=== PATIENT | female | born 1980 | race Caucasian/White ===

== ENCOUNTER → 2016-08-09 | Outpatient (CLI) | payer BC ==
[~2016-08-09] VITALS: Ht 157.5 cm; Wt 59.9 kg
[~2016-08-09] MED LIST: ADDERALL 20 MG20 M1 PO; APAP500 PO; BENADRYL PO; CELEBREX 200 M200 MG PO; CIPRO250 M1 PO; DERMOPLAST SPRA56 ML TOP; ENDOCET 10-3251 EACH PO; HYDROCODON-ACE1 EAC7 PO; HYDROCODONE-AP1 EAC6 PO; HYDROCORTISONE28 G1 TOP; IBUPROFEN 200200 M1 PO; IBUPROFEN 600600 M1 PO; LANOLIN56 GM TOP; LEVOCETIRIZINE D5 MG PO; LOESTRIN 24 FE1 EACH PO; LORTAB 5 MG/5001 TA1 PO; LYRICA 50 MG50 MG PO; MELATONIN5 M2 PO; MOBIC15 MG PO; NABUMETONE 500500 M1 PO; NABUMETONE 750750 M1 PO; NORCO 5-325 TA1 EACH PO; PRENATAL; PRENATAL COMPL1 EACH PO; PRENATAL PO; SINGULAIR 10 MG10 M1 PO; TUCKS MEDICATE1 EAC1 TOP; VOLTAREN GEL 1100 G2 TOP; ZANTAC PO; ZOFRAN 4 MG ORAL4 M1 DIS
--- NOTE | ~2016-08-09 | HPC ---
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 She was last seen in pain clinic on 06/28/2016. She had trauma to her right foot in February 2015, fracturing the right 4th metatarsal. This was treated conservatively for 8 weeks. Pain has persisted. She has seen 4 different consultants, 2 bundle shaker and 2 orthopedic surgeons, all with varying opinions. Ultimately, they suggested conservative therapy. Unfortunately, she has persisted with pain in this area. I started some Celebrex at last visit. She returns to pain clinic today, pain remains problematic. 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 There is an angular displaced fracture mid shaft with pain that interferes with function. She rates it /10. She has an antalgic gait. I suggest that she follow up with Dr. Ruddy Kraus for consideration for interventional therapy. 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 RECOMMENDATION: We will certainly defer to the treating physicians, but suggest that she follow up with Dr. Ruddy Kraus. Dr. Kraus kindly accepted a phone call from me today. We discussed her case. He said it would be happy to have her come to the clinic Friday morning and they were to work her in [employer]. She does have diagnostic studies with her. PHYSICAL EXAMINATION: Otherwise, shows a 36-year-old female, BMI is 24.1 kilograms per meter squared. Vital signs stable as noted in the EMR. Again, markedly antalgic gait. Tender over the right mid foot both anterior and posterior aspect, pain with weightbearing. There is a slight nodular palpable area which may represent callous formation though the x-rays did not show callous formation at this level. 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 RECOMMENDATION: Today, we will renew low dose pain medicine including [address] [address] PAIN MANAGEMENT CONSULTATION Name: SANDHYA HALL Room #: REG MELIDA Escobar#: [id number] Admission: 08/09/16 Attend Phys: Epifanio Jimenez DO Discharge: Date of : 81 Report #: [id number] hydrocodone 5/325, dispensed #60 tablets, one tablet every 4-6 hours. Continue Celebrex 200 mg 1 a day. <ELECTRONICALLY SIGNED> By: Epifanio Jimenez DO 08/12/16 1130 1046 1305 Epifanio Jimenez DO /nt
[2016-08-09 13:38] VITALS: BP 113/82
== END | disposition home or self-care (01) ==
LOC: PAIN 07:25
DX: M79.671 Pain in right foot (principal)

== ENCOUNTER → 2016-09-13 | Outpatient (CLI) | payer BC ==
[~2016-09-13] VITALS: Ht 157.5 cm; Wt 59.0 kg
[~2016-09-13] MED LIST changes: +NEURONTIN100 MG PO
--- NOTE | ~2016-09-13 | HPC ---
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 She has been treated for coccydynia in the past. This is relatively quiescent at present. She unfortunately had trauma to her right foot and now has chronic pain secondary to a right 4th metatarsal fracture. She has seen multiple podiatrists and orthopedic surgeons, one suggested surgery and several others voiced recommendations that watchful waiting was better. I reviewed the radiologist's reading from the CT of the right foot, noting deformity of the 4th metatarsal shaft consistent with a healed fracture. No CT findings to suggest nonunion were noted. Remainder of the visible osseous structures appear intact. No evidence of bone destruction. The joint relationships are normal. No erosive changes or significant periarticular osteophytes were noted. Impression simply was healed 4th metatarsal fracture. Nonetheless, she does have a palpable knot on the dorsal aspect of the foot over that right 4th metatarsal shaft. This appears to be the fracture site compatible with classic hypertrophic bone "callus" or healing site. I suggested that typically bones will remodel over time and I think that watchful waiting is certainly reasonable here. Nonetheless, it is causing significant pain. Today, we talked at length about current medication. She uses hydrocodone very sparingly 5/325 up to 2 a day, Voltaren gel topically. We reviewed the fact that opiate medications are being used to provide analgesia adequate to support activities of daily living, not attempting to achieve a specific pain score on the 0-10 Visual Analog Scale. The current opiate medications are providing sufficient analgesia to allow the patient to participate in activities of daily living. The patient is not exhibiting any aberrant behavior suggestive of drug diversion. The patient is not having any adverse reactions to medications. The patient is not suffering from daytime somnolence or mental acuity changes. The patient is managing opiate-induced constipation with appropriate icdc-lkn-teqnatz agents and dietary considerations. The patient was counseled on concern for caution with operating a motor vehicle while using opiate medications. A physical exam was performed and the patient's functional status was evaluated. All patients with back pain were advised against the bed rest greater than 4 days and were advised to return to normal activities. Pain score assessment was noted and the treatment plan was reviewed with the patient. All current medications, both prescribed and OTC were reviewed and reconciled on the electronic medical record. Tobacco screening [place] [address] PAIN MANAGEMENT CONSULTATION Name: SANDHYA HALL Room #: REG MELIDA Escobar#: [id number] Admission: 09/13/16 Attend Phys: Epifanio Jimenez DO Discharge: Date of : 81 Report #: [id number] cessation was advised when indicated. BMI was noted and diet/exercise modification was recommended for all patients following outside normal parameters. I reviewed with the patient today their responsibilities to safeguard prescription medications, reviewed their responsibility to utilize medications only as prescribed by the physician. They are to seek and receive pain medications only from 1 physician group ( [facility]). They are to use 1 pharmacy and keep the clinic informed if they change pharmacies. Their responsibilities include making followup visits in a timely fashion and to avoid abrupt discontinuation of medication usage. Their responsibilities further include bringing their medications (bottles from the pharmacy with residual pills) to the visit for possible confirmation of pill counts and the patient understands it is their responsibility to submit to random drug screens to ensure both that the medications prescribed are present, and that no other controlled substances are present. All prescriptions provided today were generated electronically. ASSESSMENT: Symptomatic right foot pain status post fracture with slow healing callus formation causing compression pressure. 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 We suggested trialing gabapentin 100 mg at bedtime, slowly titrating up to 3 at night to help with neuropathic pain component. Follow up in 1-2 months for reevaluation. <ELECTRONICALLY SIGNED> By: Epifanio Jimenez DO 09/16/16 0806 1537 2253 Epifanio Jimenez DO /nt
[2016-09-13 14:15] VITALS: BP 122/84
== END | disposition home or self-care (01) ==
LOC: PAIN 12:05
DX: M79.671 Pain in right foot (principal); S92.341G Displaced fracture of fourth metatarsal bone, right foot, subsequent encounter for fracture with delayed healing; X58.XXXD Exposure to other specified factors, subsequent encounter

== ENCOUNTER → 2016-11-29 | Outpatient (CLI) | payer BC ==
[~2016-11-29] VITALS: Ht 157.5 cm; Wt 59.0 kg
[~2016-11-29] MED LIST changes: +MAGOX 400400 MG PO
[2016-11-29 09:23] VITALS: BP 118/80
== END | disposition home or self-care (01) ==
LOC: PAIN 06:51
DX: M54.16 Radiculopathy, lumbar region (principal); M53.3 Sacrococcygeal disorders, not elsewhere classified; G89.29 Other chronic pain; M25.571 Pain in right ankle and joints of right foot; Z98.890 Other specified postprocedural states

== ENCOUNTER → 2017-03-03 | Outpatient (CLI) | payer BC ==
[~2017-03-03] VITALS: Ht 157.5 cm; Wt 59.9 kg
--- NOTE | ~2017-03-03 | HPC ---
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 Last seen in the pain clinic on 11/29/2016. She had been taking gabapentin 300 mg at bedtime. We titrated slowly up to a dose of 100 mg in the morning and 400 at night. Did an epidural injection of L4-L5 at that time. Suggested an MRI, but fortunately, the patient had excellent relief following that injection. She notes in fact 90% relief for about 8 weeks. Pain is starting to recur. Primarily, paresthesia the posterior thigh (right), lateral lower extremity with paresthesias since in the lateral aspect of the right foot. Near the fracture site (distal fourth metatarsal-tarsal joint), has a burning dysesthesia in the foot. PHYSICAL EXAMINATION: GENERAL: Shows a 37-year-old female. VITAL SIGNS: BMI is 24.1 kilograms per meter squared. Vital signs are stable, as noted in the EMR. NEUROLOGIC: Cranial nerves 2-12 are grossly intact. Speech is fluent. Alert and oriented to person, place and time; judged to be a reasonable historian. EXTREMITIES: She does have a small knot on the superior aspect of the right foot distal aspect of the fourth metatarsal-tarsal joint. She does have a little lateral spread of the foot on that side when she is standing and weightbearing, compared to the left side. Lower extremity strength shows slight diminution of right hip flexion lower extremity strength about 3-4/5, left is a little stronger at 4/5. Positive straight leg raise noted on the right. ASSESSMENT: 1. Symptomatic lumbar radiculopathy, recommendation epidural injection under fluoroscopy today. 2. Right foot pain, history of coccydynia and chronic pain syndrome, requiring high-risk complex medication management. RECOMMENDATIONS: 1. Continue gabapentin 100 mg up to one tablet in the morning and 4 at night, wean as able. 2. Continue Celebrex 200 mg one a day. 3. Continued hydrocodone 5/325, limit 120 tablets typically for 2-3 months. PROCEDURE: Lumbar epidural injection under fluoroscopy. [address] [address] PAIN MANAGEMENT CONSULTATION Name: SANDHYA HALL Duran Room #: REG MELIDA Escobar#: [id number] Admission: 03/03/17 Attend Phys: Epifanio Jimenez DO Discharge: Date of : 81 Report #: [id number] PROCEDURE NOTE: After both written and informed consent to include risk of spinal cord damage, increased pain, weakness and dural puncture, the patient was taken to the fluoroscopy suite, placed in the prone position. After sterile prep and drape, a skin wheal with lidocaine was raised. A 22-gauge epidural Tuohy needle was inserted in the midline at the level of L4-L5 with good loss to resistance. Negative aspiration for cerebrospinal fluid or blood was noted. Then 1 mL of Omnipaque under biplanar fluoroscopy showed good spread within the epidural space. This was followed with 80 mg of triamcinolone plus 1 mL of 1.5% preservative-free Xylocaine, 0.5 mL Xylocaine was then injected to flush the needle; it was removed. The patient was monitored for an appropriate period of time and discharged in good and stable condition. <ELECTRONICALLY SIGNED> By: Epifanio Jimenez DO 03/05/17 0802 1024 1145 Epifanio Jimenez DO /nt
[2017-03-03 08:59] VITALS: BP 114/73
== END | disposition home or self-care (01) ==
LOC: PAIN 06:58
DX: M54.16 Radiculopathy, lumbar region (principal); M25.572 Pain in left ankle and joints of left foot; G89.4 Chronic pain syndrome; M53.3 Sacrococcygeal disorders, not elsewhere classified; Z79.891 Long term (current) use of opiate analgesic; Z98.890 Other specified postprocedural states

== ENCOUNTER → 2017-04-29 | Outpatient (CLI) | payer BC | LOC: MRI 12:45 | DX: M54.16 Radiculopathy, lumbar region (principal) ==

== ENCOUNTER → 2017-08-28 | Outpatient (CLI) | payer BC ==
[~2017-08-28] VITALS: Ht 160 cm; Wt 59.9 kg
[~2017-08-28] MED LIST changes: +RIZATRIPTAN5 M1 PO; +TRANSDERM-SCOP1 EACH TRANSDERM
--- NOTE | ~2017-08-28 | HPC ---
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 She has been treated for coccydynia for quite some time, complaint of lumbar radiculopathy, also has ongoing right foot pain status post poorly healing metatarsal fracture. Last seen in pain clinic 03/03/2017, continued the patient on baseline medication including hydrocodone p.r.n. Last prescription for 120 tablets was generated in November. She discontinued gabapentin due to lack of efficacy. Does take Celebrex 200 mg 1 a day. Returns to pain clinic today with increasing pain in the coccyx area. Pain with sitting, a burning dysesthesia into her buttocks. Chronic pain that waxes and wanes. She is getting ready to travel to [place] to go to [employer] with her children. She knows that riding a ride will significantly exacerbate pain with prolonged sitting, both traveling and riding rides. PHYSICAL EXAMINATION: Otherwise unchanged pleasant 37-year-old female, BMI is 23.4 kilograms per meter squared. Blood pressure is 116/85, pulse 100, respirations 18. Alert and oriented to person, place and time, judged to be a reasonable historian. Does have a little swelling in the right foot, still palpable defect at the fourth metatarsal head. Gait, however, is generally tandem. Diffuse tenderness in the perirectal coccyx area. ASSESSMENT #1: Coccydynia, lumbar radiculopathy, right foot pain status post multiple surgeries, requiring complex medication management. RECOMMENDATIONS: 1. We will renew hydrocodone 5/325, dispense 120 tablets, no refill. 2. She was concerned about vertigo and motion sickness while traveling. I did provide her with a prescription for scopolamine transdermal patch, dispensed 5 patches use q. 3 days. ASSESSMENT #2: Acute exacerbation of coccydynia. RECOMMENDATION: Caudal epidural injection under fluoroscopy. PROCEDURE NOTE: After informed consent was obtained, the patient was taken to the fluoroscopy suite and placed in prone position. After sterile prep and drape, skin wheal was raised. A 22-gauge stylet needle was placed through the sacral hiatus into the caudal epidural space. Negative aspiration was [address] [address] PAIN MANAGEMENT CONSULTATION Name: SANDHYA HALL Room #: [facility] Shawn#: [id number] Admission: 08/28/17 Attend Phys: Epifanio Jimenez DO Discharge: Date of : 81 Report #: [id number] accomplished. Omnipaque 1 mL was injected, which showed spread in the epidural space. This was followed with 80 mg triamcinolone plus 3 mL of 1% preservative-free Xylocaine. Needle was removed, area was cleansed, Band-Aid was applied. The patient monitored for an appropriate period of time, discharged in good and stable condition. <ELECTRONICALLY SIGNED> By: Epifanio Jimenez DO 09/01/17 0822 1209 1921 Epifanio Jimenez DO /nt
[2017-08-28 09:47] VITALS: BP 116/85
== END | disposition home or self-care (01) ==
LOC: PAIN 07:18
DX: M54.16 Radiculopathy, lumbar region (principal); G89.29 Other chronic pain; M53.3 Sacrococcygeal disorders, not elsewhere classified; M25.571 Pain in right ankle and joints of right foot; Z98.890 Other specified postprocedural states; Z79.891 Long term (current) use of opiate analgesic

== ENCOUNTER 2017-11-03 12:09 | Emergency (ER) | payer BC ==
[~2017-11-03] VITALS: Ht 160 cm; Wt 58.1 kg
--- NOTE | ~2017-11-03 | EKG ---
[address] [address] ELECTROCARDIOGRAM REPORT Name: CHIQUITA HALLPERLITA Garzon Room #: DEP [facility]#: [id number] Admission: 11/03/17 Attend Phys: Discharge: 11/03/17 Date of : 81 Report #: [id number] THIS REPORT FOR: //name// [facility] ED Test Date: 2017-11-03 Test Time: 12:34:03 Pat Name: SANDHYA HALL Department: Room: Gender: F Heel Shaper: LEENA : 1980 Requested By: Contreras Delgado Order Number: [id number] MD: Kaleb Henderson Measurements Intervals [place] Rate: 102 P: 56 NJ: 145 QRS: 48 QRSD: 205 T: 20 QT: 355 QTc: 463 Interpretive Statements Sinus tachycardia Nonspecific intraventricular conduction delay No previous ECG available for comparison Electronically Signed On 11-04-2017 14:22:09 CDT by Kaleb Henderson [email or web address] <ELECTRONICALLY SIGNED> By: Kaleb Henderson MD 11/04/17 1422 1234 1234 MD FRANCHESCA Siddiqui
[2017-11-03 12:49] LABS: ABSOLUTE NEUTROPHILS 3.3 thou/uL (1.4-8.2); BASOPHILS 0.6 % (0.0-2.0); EOSINOPHILS 0.5 % (0.0-3.0); HEMATOCRIT 41.4 % (37.0-47.0); HEMOGLOBIN 14.2 gm/dL (12.0-15.0); LYMPHOCYTES 41.2 % (24.0-44.0); MCH 31.5 pg (26.0-34.0); MCHC 34.2 g/dL (28.0-37.0); MCV 92.1 fL (80.0-100.0); PLATELET COUNT 237 thou/uL (150-400); POLYS 50.7 % (36.0-66.0); RDW 12.5 % (10.5-14.5); WBC 6.5 thou/uL (4.0-11.0)
[2017-11-03 12:58] LABS: ANION GAP 14 mmol/L (7-16); BUN 8 mg/dL (7-18); CALCIUM 9.6 mg/dL (8.5-10.1); CHLORIDE 103 mmol/L (98-107); CO2 20 mmol/L (21-32); CREATININE 0.9 mg/dL (0.6-1.0); GLUCOSE 102 mg/dL (74-106); POTASSIUM 3.3 mmol/L (3.5-5.1); SODIUM 137 mmol/L (136-145)
[2017-11-03 13:04] LABS: TROPONIN-I < 0.04 ng/mL (<0.06)
[2017-11-03] MEDS ORDERED: VALIUM5 MG PO (14:04)
== END 2017-11-03 19:23 | disposition home or self-care (01) ==
LOC: ER 12:09
PROVIDERS: Physician Assistant
DX: R00.2 Palpitations (principal); R29.0 Tetany; E87.6 Hypokalemia; R06.02 Shortness of breath; R00.0 Tachycardia, unspecified; R25.2 Cramp and spasm; M79.651 Pain in right thigh; Z90.49 Acquired absence of other specified parts of digestive tract; Z90.89 Acquired absence of other organs

== ENCOUNTER → 2017-11-27 | Outpatient (CLI) | payer BC ==
[~2017-11-27] MED LIST changes: +VALIUM5 MG PO
== END ==
LOC: RAD 07:57
DX: R06.00 Dyspnea, unspecified (principal)

== ENCOUNTER → 2017-11-28 | Outpatient (CLI) | payer BC ==
[~2017-11-28] VITALS: Ht 160 cm; Wt 61.2 kg
--- NOTE | ~2017-11-28 | HPC ---
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 I have treated her for coccydynia and some right foot chronic pain, some neuropathic pain component, requiring complex medication management. She uses hydrocodone 5/325 on a p.r.n. basis anywhere from 0-4 a day. She had a caudal epidural injection at last visit on 08/28/2017 with some improvement of radicular pain. She has been doing physical therapy and has developed some concerning pain in the right gluteal area. Physical therapist thinks it may be related to piriformis entrapment. She has ongoing radicular pain, which can continue to be problematic in right side with fairly classic sciatic type distribution. Concerningly, she has also developed some pain in her bilateral hips. She has a chronically subluxable right shoulder. PHYSICAL EXAMINATION: Does show tenderness over the piriformis in the SI area, tenderness over the right trochanteric bursa. Lower extremity strength is preserved. ASSESSMENT: Symptomatic coccydynia by history, right foot pain chronically requiring complex medication management, neuropathic pain component and new diagnosis of piriformis syndrome. RECOMMENDATION: 1. Piriformis injection under fluoroscopy today. 2. Continue Celebrex 200 mg 1 a day. 3. Renew hydrocodone 5/325, dispensed 120 tablets, 1 tablet q. 4-6 hours as needed for pain, second prescription for 120 tablets to release in 6 weeks. Follow up simply as needed. PROCEDURE: Right pyriformis injection under fluoroscopy. PROCEDURE NOTE: After written informed consent was obtained, the patient was taken to the fluoroscopy suite and placed in prone position. After sterile prep and drape, skin wheal was raised. A 26-gauge stylet needle was placed to contact the inferior aspect of the right SI joint. Depth was noted and needle was withdrawn and repositioned in a more inferior direction, advanced approximately 1 cm deeper. Negative aspiration was accomplished. 1 mL of [facility] [address] [place] [address] PAIN MANAGEMENT CONSULTATION Name: CHIQUITA HALLPERLITA Garzon Room #: [facility] [id number] Admission: 11/28/17 Attend Phys: Epifanio Jimenez DO Discharge: Date of : 82 Report #: [id number] Omnipaque was injected, which showed spread within the striations of the piriformis muscle, followed with 40 mg triamcinolone plus 2 mL of 1.5% preservative-free Xylocaine with 1:200k epinephrine. Needle was removed. The area was cleansed, Band-Aid applied. The patient monitored for an appropriate period of time, discharged in good and stable condition. <ELECTRONICALLY SIGNED> By: Epifanio Jimenez DO 11/30/17 1135 1520 2131 Epifanio Jimenez DO /nt
[2017-11-28 13:43] VITALS: BP 119/82
== END | disposition home or self-care (01) ==
LOC: PAIN 08:41
DX: M79.1 Myalgia (principal); G57.01 Lesion of sciatic nerve, right lower limb; M53.3 Sacrococcygeal disorders, not elsewhere classified; G62.9 Polyneuropathy, unspecified; G89.29 Other chronic pain

== ENCOUNTER → 2018-04-22 | Outpatient (CLI) | payer BC ==
[~2018-04-22] MED LIST changes: +BUTALB-ACETAMI1 EAC2 PO; +HYDROCODON-ACE1 EAC5 PO; +TOPAMAX50 MG PO; +VYVANSE70 MG PO
== END ==
LOC: PAIN 10:57
DX: M79.671 Pain in right foot (principal); M06.9 Rheumatoid arthritis, unspecified; Z72.89 Other problems related to lifestyle

== ENCOUNTER → 2018-05-13 | Outpatient (CLI) | payer BC ==
[~2018-05-13] VITALS: Ht 160 cm; Wt 64.9 kg
[~2018-05-13] MED LIST changes: +GRALISE600 MG PO
--- NOTE | ~2018-05-13 | HPC ---
[facility] [place] [address] PAIN MANAGEMENT CONSULTATION Name: SANDHYA HALL Duran [facility] #[facility] [id number] Admission: 05/13/18 Attend Phys: Talat Jimenez DO Discharge: Date of : 81 Report #: [id number] THIS REPORT FOR: //name// CC: Talat Jimenez DATE OF SERVICE: 05/13/2018 CHIEF COMPLAINT: Right foot pain. HISTORY OF PRESENT ILLNESS: As you know, the patient is a very pleasant 38-year-old female who continues to experience right foot pain status post foot surgery. She describes the pain as aching, constant, sharp, throbbing, shooting, radiating, tenderness, pressure, tightness, burning and numbness in sensation. She indicates pain level today of around 3-4/10. Activity, standing, walking exacerbate symptoms. Medications, rest, ice and cold compresses and topical agents tend to improve pain. She was started on Lyrica via samples for neuropathic pain with good efficacy, but unfortunately can only reach 150 mg at night due to somnolence, decreased mental acuity, disorientation and confusion. She does note good improvement in symptoms with this medication. She returns today in followup visit requesting refill of pain medications and to adjust her neuropathic medication due to the side effects. At 150 mg dose the patient indicates good efficacy from a pain standpoint with about 50% improvement in overall symptoms, but she cannot tolerate the potential side effects by reducing by 50 mg. Her side effects improved, but her pain returns to intolerable. She returns to discuss treatment options. ALLERGIES: No known drug allergies. CURRENT MEDICATIONS: Hydrocodone 10/325 one tab every 6 hours p.r.n. for pain, topiramate 50 mg once a day, Vyvanse 70 mg once a day, Fioricet 1 tab p.r.n., rizatriptan 5 mg p.r.n., levocetirizine 5 mg per day. SOCIAL HISTORY: The patient denies tobacco, alcohol, IV or illicit drug use. She is working, not receiving workmen's compensation, unaccompanied today. IMAGING: No new imaging available. PHYSICAL EXAMINATION: VITAL SIGNS: Blood pressure 135/74, pulse 85, respiratory rate 16 and unlabored, the patient is 99% on room air. Height 5 feet 3 inches tall, weight 143 pounds, BMI calculated 25.3. GENERAL: Well-developed, well-nourished, well-hydrated 38-year-old female, appearing stated age. She is placing pain score today up to 4/10. HEENT: Normocephalic, atraumatic. Pupils are equal, round, reactive to [place] [address] PAIN MANAGEMENT CONSULTATION Name: SANDHYA HALL Room #: REG [facility]#: [id number] Admission: 05/13/18 Attend Phys: Talat Jimenez DO Discharge: Date of : 81 Report #: [id number] EXTREMITIES: Show no clubbing, no cyanosis, no edema. MUSCULOSKELETAL: The patient has well-healed surgical scars on the lateral portion of the anterior foot on the right. There is also well-healed surgical scar, left medial portion of the foot. There are noted changes in skin color, texture over the area. There is palpatory tenderness noted over the fourth digit second articulation that causes intense pain. Deep palpation in the area causes a burning sensation to radiate towards the incision on the right anterior medial portion of the foot. There does appear to be changes in skin color and texture on the plantar surface of the foot and there is some mottling noted of the skin from approximately the ankle towards the forefoot. ASSESSMENT: 1. Right foot pain status post surgery. 2. Peripheral neuropathy. 3. Concerning findings of complex regional pain syndrome type 1. PLAN: 1. The patient has returned today in followup visit where we have discussed at length the efficacy. She receives off the Lyrica, unfortunately she cannot tolerate escalating the dose beyond 100 mg during the day due to somnolence, decreased mental acuity, disorientation, confusion and mental slowing. We had tried the patient on gabapentin in the past, but was unable to escalate her dosing due to similar side effects. She did receive excellent benefit with both medications at elevated dosing, but again could not tolerate the side effects due to the immediate release formulations of Lyrica and gabapentin in their effect 20 minutes after taking the medication. We had discussed in the past, possibly of starting the patient on Gralise. I think this would be the optimal time to do so. 2. The patient was provided prescription of Gralise 600 mg dose 1 tab p.o. at bedtime to continue for 4 nights. If no improvement in symptoms, no side effects, then increase to 1200 mg at night. I have provided the patient with a prescription of Gralise 600 mg tablets to escalate dose to efficacious level. She is to watch for side effects with its use. Given the fact that she has had good effect with the immediate release gabapentin and good effect with the immediate release Lyrica, but could not tolerate the side effects of the medications due to their propensity to cause immediate side effects 20-30 minutes after the medication, I feel a long-acting formulation therapy would be appropriate. We will trial the patient on Gralise. She was given prescription today. 3. The patient was provided prescription of hydrocodone one tab p.o. q.6 hours p.r.n. for pain. The patient feels this medication is working beneficially. I have provided her a refill prescription today for 1 month. 4. We reviewed the fact that opiate medications are being used to provide analgesia adequate to support activities of daily living, not attempting to achieve a specific pain score on the 0-10 Visual Analog Scale. The current opiate medications are providing sufficient analgesia to allow the patient to [address] [address] PAIN MANAGEMENT CONSULTATION Name: SANDHYA HALL Duran Room #: [facility]#: [id number] Admission: 05/13/18 Attend Phys: Talat Jimenez DO Discharge: Date of : 81 Report #: [id number] participate in activities of daily living. The patient is not exhibiting any aberrant behavior suggestive of drug diversion. The patient is not having any adverse reactions to medications. The patient is not suffering from daytime somnolence or mental acuity changes. The patient is managing opiate-induced constipation with appropriate [id number] agents and dietary considerations. The patient was counseled on concern for caution with operating a motor vehicle while using opiate medications. A physical exam was performed and the patient's functional status was evaluated. All patients with back pain were advised against the bed rest greater than 4 days and were advised to return to normal activities. Pain score assessment was noted and the treatment plan was reviewed with the patient. All current medications, both prescribed and OTC were reviewed and reconciled on the electronic medical record. Tobacco screening was accomplished and smoking cessation was advised when indicated. BMI was noted and diet/exercise modification was recommended for all patients following outside normal parameters. I reviewed with the patient today their responsibilities to safeguard prescription medications, reviewed their responsibility to utilize medications only as prescribed by the physician. They are to seek and receive pain medications only from 1 physician group ( [facility]). They are to use 1 pharmacy and keep the clinic informed if they change pharmacies. Their responsibilities include making followup visits in a timely fashion and to avoid abrupt discontinuation of medication usage. Their responsibilities further include bringing their medications (bottles from the pharmacy with residual pills) to the visit for possible confirmation of pill counts and the patient understands it is their responsibility to submit to random drug screens to ensure both that the medications prescribed are present, and that no other controlled substances are present. All prescriptions provided today were generated electronically. 5. The patient is to follow up with her dust mixer this week. We will await their discussion and suggestions for treatment. Certainly continuation of neuropathic medication and consistent opioid at present is most appropriate, though further treatment options may be suggested through her dust mixer who she will be seeing this week. 6. We will see the patient back in followup visit on an as needed basis. By: [id number] Talat Jimenez DO /nt
[2018-05-13 11:30] VITALS: BP 135/74
== END ==
LOC: PAIN 10:47
DX: Z48.89 Encounter for other specified surgical aftercare (principal); M79.671 Pain in right foot; G62.9 Polyneuropathy, unspecified; G90.50 Complex regional pain syndrome I, unspecified

== ENCOUNTER → 2018-05-26 | Outpatient (CLI) | payer BC ==
[~2018-05-26] VITALS: Ht 160 cm; Wt 62.6 kg
--- NOTE | ~2018-05-26 | HPC ---
[facility] [address] [address] PAIN MANAGEMENT CONSULTATION Name: SANDHYA HALL Room #: REG [facility] FlemingoJse LuisJavierJose Luis#: [id number] Admission: 05/26/18 Attend Phys: Talat Jimenez DO Discharge: Date of : 81 Report #: [id number] THIS REPORT FOR: //name// CC: Talat Shah DATE OF SERVICE: 05/26/2018 REFERRING PHYSICIAN: Talat Wade D.O. CHIEF COMPLAINT: Complex regional pain syndrome of the right lower extremity. HISTORY OF PRESENT ILLNESS: As you know, the patient is a very pleasant 38-year-old female who began to experience generalized neuropathic pain after a foot surgery performed to address right foot pathology. The patient indicates pain began to progress. It is no longer involving the incision areas. It is now causing more generalized pain in a distribution, nondermatomal. She carries the diagnosis of complex regional pain syndrome type 1 and we have initiated medication therapy both with opioid medications and neuropathic pain medications. She has begun physical therapy after being released from care from her foot surgeon, which has increased her overall pain. She is describing allodynic and hyperalgesic components of her pain involving the right foot. Symptoms are unrelated to the area of the incisions themselves. She has a significant temperature changes when comparing left lower extremity to right and there is noted mottling of the skin indicative of a complex regional pain syndrome. She returns today in followup visit with pain level of 6-7/10, increases with activity up to /10. She returns to discuss treatment options. ALLERGIES: No known drug allergies. CURRENT MEDICATIONS: Lyrica 150 mg p.o. at bedtime, hydrocodone/acetaminophen 10/325 one tab p.o. q. 4 hours p.r.n. for pain, topiramate 50 mg 2 tabs p.o. q.a.m., Vyvanse 70 mg per day, Fioricet 1 tab every 8 hours p.r.n. headaches, rizatriptan 5 mg dose and rapid Zydis p.r.n. SOCIAL HISTORY: The patient denies tobacco, alcohol or IV or illicit drug use. She is working, not receiving workmen's compensation nor is she trying to obtain disability benefits. She is unaccompanied today. IMAGING DATA: There is no new imaging available. PHYSICAL EXAMINATION: VITAL SIGNS: Blood pressure 119/76, pulse 85, respiratory rate 16 and unlabored and the patient 99% on room air. Height 5 feet 3 inches tall, weight 138 pounds and BMI calculated 24.5[place] [address] PAIN MANAGEMENT CONSULTATION Name: SANDHYA HALL Room #: [facility] [id number] Admission: 05/26/18 Attend Phys: Talat Jimenez DO Discharge: Date of : 81 Report #: [id number] GENERAL: Well-developed, well-nourished and well-hydrated 38-year-old female, appearing her stated age. She is in mild distress secondary to pain, placing current pain score at 6-10/10 depending on activity. HEENT: Normocephalic and atraumatic. Pupils equal, round and reactive to light. Extraocular muscles are intact. Sclerae nonicteric without injection. NEUROLOGICAL: Cranial nerves 2 through 12 grossly intact. Speech is fluent. The patient deemed an excellent historian. EXTREMITIES: Show no clubbing and no cyanosis. There is noted mottling, skin color changes with hues of blues and purples involving the right lower extremity from approximately the ankle to the toes involving both the plantar surface and the dorsum of the foot. Noted temperature change between the dorsum of the foot on the right dorsum foot on the left, right measuring at 72.9 degrees Fahrenheit and left 81.2 degrees Fahrenheit. There is noted allodynia involving a nondermatomal distribution involving the lateral portion of the right foot as well as medial aspect of the foot from the articulation of the great toe to the medial arch. There is also noted palpatory tenderness over the incision sites more of hyperalgesic response. ASSESSMENT: 1. Complex regional pain syndrome type 1. 2. Peripheral neuropathy. 3. Chronic right foot pain. 4. Chronic intractable pain. PLAN: 1. The patient has returned today in followup visit. We have discussed at length treatment options for complex regional pain syndrome. The patient has been initiated on neuropathic pain medication in the form of Lyrica and she has escalated dose to 150 mg at night but is having difficulty with daytime sleepiness, somnolence, disorientation, confusion and some mental slowing. She is reporting difficulty with concentration and has not been driving due to this side effect, but she is noticing an improvement in symptoms. She is taking hydrocodone for pain control and receiving some benefit. Her symptoms continued to cause increasing disability. We have discussed with the patient other treatment option for complex regional pain syndrome outside of medication management and following was discussed with the patient today. 2. We discussed the possibility of undergoing lumbar sympathetic blockades involving the right sympathetic chain in the lumbar region. These are performed in a series trying to reduce the sympathetic component that may be mediating pain. It does appear based on her changes in skin color and blood flow as well as the temperature changes that her symptoms are likely mediated by sympathetic discharge and she may see significant benefit with this type of procedure. We also discussed further adjustments in medication management but given her side effects to the Lyrica, escalating this dose may not be recommended. We finally discussed spinal cord stimulator therapy as an option, which could provide good and prolonged benefit. After reviewing risks and benefits of all proposed [facility] [address] [place] [address] PAIN MANAGEMENT CONSULTATION Name: SANDHYA HALL Duran Room #: REG [facility] Escobar#: [id number] Admission: 05/26/18 Attend Phys: Talat Jimenez DO Discharge: Date of : 81 Report #: [id number] treatment options, the patient chose to move forward with a lumbar sympathetic blockade. The patient was advised risks and benefits of the lumbar sympathetic blockade. These risks include but are not necessarily limited to bleeding, bruising, infection, worsening pain, no relief of pain, also risk of temporary or permanent muscle weakness, temporary or permanent nerve damage, possible paralysis, post-dural puncture headache and . The patient states understood and wished to proceed. 3. We elected to maintain medication at current dosing, though we did discuss the possibility of increasing Lyrica in the daytime hours, though I am resistant to do so as she is experiencing daytime somnolence, disorientation, confusion and some mental slowing. 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 I am in agreement with the patient at this time, we will delay any changes in medication therapy to determine if the lumbar sympathetic blockade will be effective at alleviating her symptoms. If this is not the case, we will discuss spinal cord stimulator or adjustments in medication management. 4. The patient will return to our clinic on May 29 to undergo the next in the series of lumbar sympathetic blockades. PROCEDURE NOTE DESCRIPTION OF PROCEDURE: Right L3 lumbar sympathetic blockade. After obtaining written consent, the patient was taken back to fluoroscopy suite, placed in prone position with pillow under abdomen to decrease lumbar lordosis. Skin overlying the lumbosacral area then prepped and draped in aseptic fashion. The image intensifier was then rotated into position to align the right L3 transverse process with the anterior surface of the L3 vertebral body. The skin was marked with a sterile marker and cleansed with aseptic technique using chlorhexidine. A 27-gauge 1/4-inch needle was then used to anesthetize skin and subcutaneous tissue with 2 mL of 1% lidocaine. A 22-gauge 4-1/2 inch Tuohy needle was then advanced under fluoroscopic guidance towards the anterior surface of the L3 vertebral body. Needle was advanced to the lateral side of the L3 transverse process on the right. Needle was advanced passed the transverse process after making contact with the process itself. The needle was then advanced until reaching the anterior surface of the L3 vertebral body. After negative aspiration for heme or cerebrospinal fluid, 1 mL of Omnipaque was injected. Excellent spread in the anterior surface of the L2 and L3 vertebral body was noted under live fluoroscopy with absence of vascular uptake. AP imaging, lateral imaging and oblique imaging was obtained to confirm position of the needle in the appropriate area to address the sympathetic chain on the right side of the lumbar spine. After confirmation of position of needle [address] [address] PAIN MANAGEMENT CONSULTATION Name: SANDHYA HALL Room #: REG [facility] Escobar#: [id number] Admission: 05/26/18 Attend Phys: Talat Jimenez DO Discharge: Date of : 81 Report #: [id number] and lack of vascular uptake with the Omnipaque, 8 mL of a solution containing 1 mL 40 mg per mL, 40 mg total triamcinolone and 7 mL of bupivacaine 0.5% injected slowly. Needle retracted approximately half way, flushed with 1 mL of 1% lidocaine and then removed. Sterile bandage was then placed over injection site. There were no new motor deficits present in lower extremity following procedure. The patient tolerated procedure well, carefully escorted to recovery room in stable condition. The patient was evaluated periodically by myself after this sympathetic block. The patient's temperature connor on the right foot to within 1 degree of the left foot. This was tested both on the dorsum of the foot, plantar surface and the toes. There was good return of normal blood flow, the changes in skin color improved and appeared equal to the left side. A significant change noted with the sympathetic blockade. After meeting our discharge criteria, the patient was discharged home with plans to follow up with us on November 26 for the second in the series of lumbar sympathetic blockade. By: 0815 Talat Jimenez DO /nt
[2018-05-26 14:27] VITALS: BP 119/76
--- NOTE | 2018-05-26 14:28 | NUR ---
Pain Clinic Assessment: 1. History of Osteoarthritis: NO History of Rheumatoid Arthritis: NO 2. Height: 5 ft. 3 in. 160.0 cm. Weight: 138.0 lb. oz. 62.596 kg. Patient's BMI: 24.5 3. Vital Signs: BP: 119/76 Pulse: 85 Resp: 16 Temp: 02 Sat: 99 ECG Mon: 4. Pain Intensity: 6 5. Fall Risk: Dizziness: N Needs help standing or walking: N Fallen in the last 3 months: N Fall risk comments: 6. Patient on Blood Thinner: None 7. History of Hypertension: N 8. Opioid Therapy greater than 6 weeks: N Opiate Contract Signed: 9. Risk Assessment Tool Provided: 3-LOW RISK 10. Functional Assessment Tool: 11. Recreational Drug Use: Never Drug Type: Tobacco Use: Never Smoker Tobacco Type: Amount or Packs/day: How Many Years: Alcohol Use: Yes Frequency: Special Occasions Quant: 1-2
== END | disposition home or self-care (01) ==
LOC: PAIN 14:04
DX: G90.521 Complex regional pain syndrome I of right lower limb (principal); G62.9 Polyneuropathy, unspecified; M79.671 Pain in right foot; Z79.899 Other long term (current) drug therapy

== ENCOUNTER → 2018-05-29 | Outpatient (CLI) | payer BC ==
[~2018-05-29] MED LIST changes: +CATAPRES-TTS 11 EACH TRANSDERM; +IMIPRAMINE HCL10 MG PO; +ZANAFLEX4 MG PO
--- NOTE | ~2018-05-29 | HPC ---
[facility] [address] [place] [address] PAIN MANAGEMENT CONSULTATION Name: SANDHYA HALL Duran Room #: REG SOHEILA MJose Luis.#: [id number] Admission: 05/29/18 Attend Phys: Talat Jimenez DO Discharge: Date of : 82 Report #: [id number] THIS REPORT FOR: //name// CC: FAM unknown Talat Beckham DATE OF SERVICE: 05/29/2018 REFERRING PHYSICIAN: Talat Wade DO. CHIEF COMPLAINT: Right lower extremity complex regional pain syndrome. HISTORY OF PRESENT ILLNESS: As you know, the patient is a very pleasant 38-year-old female who returns today in followup visit to undergo the second in the series of lumbar sympathetic blockade under fluoroscopic guidance to address complex regional pain syndrome of the right lower extremity. The patient did very well with the initial lumbar sympathetic blockade, receiving almost 24 hours of near-complete pain relief. She is now reporting pain that is reduced from our prior examination. She returns today to undergo the second in series in hopes of progressively improving. The patient was advised this is a series of procedures to be performed on a consistent basis to reduce the symptoms of complex regional pain syndrome. She returns today for the second in the series. She denies new injury, new trauma or any changes in medical history since our last visit. ALLERGIES: No known drug allergies. CURRENT MEDICATIONS: Lyrica 75 mg in the morning and 150 mg at night, hydrocodone/acetaminophen 10/325 one tab every 4 hours p.r.n. for pain, topiramate 50 mg 2 tabs p.o. q.a.m., Vyvanse 70 mg once a day, Fioricet 1 tab every 8 hours p.r.n. headaches and rizatriptan 5 mg 1 tab p.o. q. 8 hours p.r.n. headache. SOCIAL HISTORY: The patient denies tobacco, alcohol, IV or illicit drug use. She is working, not receiving workmen's compensation, unaccompanied today. IMAGING: No new imaging available. PHYSICAL EXAMINATION: GENERAL: Well-developed, well-nourished and well-hydrated 38-year-old female, appearing her stated age, placing pain score around 5/10. HEENT: Normocephalic, atraumatic. Pupils equal, round and reactive to light. [place] [address] PAIN MANAGEMENT CONSULTATION Name: SANDHYA HALL Room #: REG CLI [facility]#: [id number] Admission: 05/29/18 Attend Phys: Talat Jimenez DO Discharge: Date of : 82 Report #: [id number] EXTREMITIES: Show no clubbing, no cyanosis. There is noted once again mottling of the skin on the right lower extremity, approximately from the ankle to the toes, similar to previous evaluation. There is a 5-degree temperature change when comparing the dorsum and the plantar surfaces of the left foot to the right foot. There does appear to be normal hair growth and nail growth on the right foot when compared to the left. ASSESSMENT: 1. Complex regional pain syndrome type 1. 2. Peripheral neuropathy. 3. Chronic right foot pain. 4. Chronic intractable pain. PLAN: 1. The patient returns today in followup visit having noted excellent benefit with the initial right L3 lumbar sympathetic blockade. She received near 100% improvement in overall pain, lasting for nearly 24 hours. Unfortunately, symptoms have begun to return, which is not atypical for sympathetic-mediated pain. She returns today to undergo the next in the series of lumbar sympathetic blockade in hopes of improving pain. The fact that she is reporting lower pain scores today is very encouraging. We recommend continuing the lumbar sympathetic blockades to continue treating complex regional pain syndrome. 2. The patient was advised on the risks and benefits of repeating L3 lumbar sympathetic blockade. The patient was advised the risks include but are not necessarily limited to bleeding, bruising, infection, worsening pain, no relief of pain, also risk of temporary or permanent muscle weakness, temporary or permanent nerve damage, possible paralysis and . The patient states she understood and wished to proceed. 3. The patient will return to our clinic on Friday of next week, 06/02/2018, for the possible third in the series of lumbar sympathetic blockades to continue treating complex regional pain syndrome type 1 of the right lower extremity. PROCEDURE NOTE PROCEDURE: Right L3 lumbar sympathetic blockade under fluoroscopic guidance. DESCRIPTION OF PROCEDURE: After obtaining written consent, the patient was taken back to fluoroscopy suite and placed in prone position with pillow under abdomen to decrease lumbar lordosis. Skin overlying lumbosacral area was then prepped and draped in the aseptic fashion. The image intensifier (C-arm) was then rotated into position to align the right L3 transverse process with the anterior surface of the L3 vertebral body. Skin was marked with a sterile marker and cleaned aseptically with chlorhexidine. A 27-gauge 1/4-inch needle was then used to anesthetize the skin and subcutaneous tissue with 3 mL of 1% lidocaine. [address] [address] PAIN MANAGEMENT CONSULTATION Name: SANDHYA HALL Room #: MARYCRUZ Escobar#: [id number] Admission: 05/29/18 Attend Phys: Talat Jimenez DO Discharge: Date of : 82 Report #: [id number] A 22-gauge 4-inch Tuohy needle was then advanced under fluoroscopic guidance towards the anterior surface of the L3 vertebral body. Needle was advanced until reaching the lateral side of the L3 transverse process on the right. Needle was then advanced past the transverse process after making contact with the process itself. The needle was then advanced until reaching the anterior surface of the L3 vertebral body. After negative aspiration for heme or cerebrospinal fluid, 3 mL of Omnipaque injected. Excellent spread of the anterior surface of the L2-L3 vertebral body was noted under live fluoroscopy with absence of vascular uptake. AP and lateral imaging was then obtained, confirming the position of the needle directly overlying the sympathetic chain on the right. After negative aspiration for heme or cerebrospinal fluid, 8 mL of bupivacaine 0.5% was injected slowly. Needle was retracted approximately half way, flushed with 1 mL of 1% lidocaine and then removed. Sterile bandage was placed over the injection site. No new motor deficits present in the lower extremity following the procedure. The patient tolerated the procedure well, carefully escorted to the recovery room in stable condition. No apparent complication. After meeting discharge criteria, the patient was then discharged home. By: [id number] Talat Jimenez DO /nt
[2018-05-29 12:20] VITALS: BP 121/83
--- NOTE | 2018-05-29 12:22 | NUR ---
Pain Clinic Assessment: 1. History of Osteoarthritis: NO History of Rheumatoid Arthritis: NO 2. Height: 5 ft. 3 in. 160.0 cm. Weight: lb. oz. kg. Patient's BMI: 3. Vital Signs: BP: 121/83 Pulse: 89 Resp: 16 Temp: 02 Sat: 98 ECG Mon: 4. Pain Intensity: 2 5. Fall Risk: Dizziness: N Needs help standing or walking: N Fallen in the last 3 months: N Fall risk comments: 6. Patient on Blood Thinner: None 7. History of Hypertension: N 8. Opioid Therapy greater than 6 weeks: N Opiate Contract Signed: 9. Risk Assessment Tool Provided: 3-LOW RISK 10. Functional Assessment Tool: 11. Recreational Drug Use: Never Drug Type: Tobacco Use: Never Smoker Tobacco Type: Amount or Packs/day: How Many Years: Alcohol Use: Yes Frequency: Special Occasions Quant:
== END | disposition home or self-care (01) ==
LOC: PAIN 06:53
DX: G90.521 Complex regional pain syndrome I of right lower limb (principal); G62.9 Polyneuropathy, unspecified; Z79.899 Other long term (current) drug therapy

== ENCOUNTER → 2018-06-02 | Outpatient (CLI) | payer BC ==
[~2018-06-02] VITALS: Ht 160 cm; Wt 62.1 kg
[~2018-06-02] MED LIST changes: +CLONIDINE HCL0.1 MG PO; +NORTRIPTYLINE H25 M3 PO
[2018-06-02 14:21] VITALS: BP 120/78
--- NOTE | 2018-06-02 14:28 | NUR ---
Pain Clinic Assessment: 1. History of Osteoarthritis: NO History of Rheumatoid Arthritis: NO 2. Height: 5 ft. 3 in. 160.0 cm. Weight: 137.0 lb. oz. 62.143 kg. Patient's BMI: 24.3 3. Vital Signs: BP: 120/78 Pulse: 94 Resp: 16 Temp: 02 Sat: 98 ECG Mon: 4. Pain Intensity: 4 5. Fall Risk: Dizziness: N Needs help standing or walking: N Fallen in the last 3 months: N Fall risk comments: 6. Patient on Blood Thinner: None 7. History of Hypertension: N 8. Opioid Therapy greater than 6 weeks: N Opiate Contract Signed: 9. Risk Assessment Tool Provided: 3-LOW RISK 10. Functional Assessment Tool: 11. Recreational Drug Use: Never Drug Type: Tobacco Use: Never Smoker Tobacco Type: Amount or Packs/day: How Many Years: Alcohol Use: Yes Frequency: Quant:
--- NOTE | 2018-06-12 06:50 | HPC ---
[facility] [place] [address] PAIN MANAGEMENT CONSULTATION Name: SANDHYA HALL Duran Room #: REG MELIDA Hamzah.#: [id number] Admission: 06/02/18 ������������������ Attend Phys: Talat Jimenez DO Discharge: ������������������ Date of : 82 Report #: [id number] THIS REPORT FOR: //name// CC: [facility] physician/PCP Talat KEITH Referring Physician DATE OF SERVICE: 06/02/2018 CHIEF COMPLAINT: Right lower extremity pain secondary to complex regional pain syndrome. HISTORY OF PRESENT ILLNESS: As you know, the patient is a very pleasant 38-year-old female who returns today in followup visit to undergo third in the series of right lumbar sympathetic blockade under fluoroscopic guidance. The patient received 27 hours' worth of pain relief with previous injection. She returns today to undergo next in the series in hopes of prolonged benefit. She is noticing good improvement in symptoms with blood flow return, changes in skin color and perfusion as well as improvement in pain. She returns to undergo the next in the series. ALLERGIES: No known drug allergies. CURRENT MEDICATIONS: Lyrica 100 mg in the morning and 150 mg at night, hydrocodone 10/325 one tab p.o. q. 4 hours p.r.n. for pain, topiramate 50 mg 2 tabs p.o. q.a.m., Vyvanse 70 mg per day, Fioricet 1 tab q. 8 hours p.r.n. headache, rizatriptan 5 mg q. 8 hours p.r.n. SOCIAL HISTORY: The patient denies tobacco, alcohol, IV or illicit drug use. She is working, not receiving workmen's compensation, unaccompanied today. IMAGING: No imaging available. PHYSICAL EXAMINATION: VITAL SIGNS: Blood pressure 120/78, pulse 94, respiratory rate 16 and unlabored. The patient is 98% on room air. Height 5 feet 3 inch tall, weight 137 pounds, BMI calculated 24.3. GENERAL: Well-developed, well-nourished, well-hydrated, 38-year-old female, appearing her stated age, placing her pain score 4/10. HEENT: Normocephalic, atraumatic. Pupils equal, round, reactive to light. EXTREMITIES: Show no clubbing. There are noted cyanotic changes of the right foot all the way up to the ankle. Mottling of the skin noted as well. There is a 7-degree temperature change from right dorsum of foot to left dorsum of foot and plantar surfaces are approximately 6 degrees difference, right versus left. There does appear to be normal hair growth and nail growth on the right when [address] [address] PAIN MANAGEMENT CONSULTATION Name: SANDHYA HALL Duran Room #: REG Jenni Escobar#: [id number] Admission: 06/02/18 ������������������ Attend Phys: Talat Jimenez DO Discharge: ������������������ Date of : 82 Report #: [id number] compared to left. ASSESSMENT: 1. Complex regional pain syndrome type 1 of the right foot. 2. Peripheral neuropathy. 3. Chronic right foot pain. 4. Chronic intractable pain. PLAN: 1. The patient returns today in followup visit indicating about 26 to 27-hour improvement in her right lower extremity pain with previous lumbar sympathetic blockade. She unfortunately has had return of symptoms. She returns today to undergo next in the series of right sympathetic lumbar blockage in hopes of providing prolonged improvement. The patient and I discussed the literature in regards to sympathetic blockade and progressive improvement in symptoms if continued to use utilize in the series. She is amenable and does wish to undergo the procedure today. If this is ineffective, we would look forward to either infusions of bupivacaine and morphine via an epidural catheter and possibly even infusions of either lidocaine or ketamine as an inpatient if symptoms do not improve. Certainly, the spinal cord stimulator is still a viable alternative. The patient has been advised risks and benefits of repeating lumbar sympathetic blockade, states understood and wished to proceed. 2. We made no changes in patient's medication management. She is to continue current medications as directed. 3. We will have the patient return to see Dr. Monroe Aviles on of this week, 06/04/2018 for possible next in the series. PROCEDURE NOTE DESCRIPTION OF PROCEDURE: Right L3 lumbar sympathetic blockade under fluoroscopic guidance. After obtaining written consent, the patient was taken back to fluoroscopy suite, placed in prone position with pillow under abdomen to decrease lumbar lordosis. Skin overlying lumbosacral area was then prepped and draped in aseptic fashion. The image intensifier (C-arm) was brought into position over the L3 level and positioned with oblique view to align the right L3 transverse process with the anterior surface of the L3 vertebral body. Skin was marked with sterile marker and cleansed with chlorhexidine. A 27-gauge 1-1/4 inch needle was then used to anesthetize skin and subcutaneous tissue. A 22-gauge 4-inch Tuohy needle was then advanced under fluoroscopic guidance towards the anterior surface of the L3 vertebral body. Needle was advanced until reaching the lateral portion of the L3 transverse process on the right. Needle was then advanced past the transverse process making contact with the anterior surface of the L3 vertebral body. After negative aspiration for heme, [facility] [address] [place] [address] PAIN MANAGEMENT CONSULTATION Name: SANDHYA HALL Room #: [facility]#: [id number] Admission: 06/02/18 ������������������ Attend Phys: Talat Jimenez DO Discharge: ������������������ Date of : 82 Report #: [id number] 3 mL of Omnipaque injected demonstrating excellent spread over the anterior surface of the L2-L3 body on the right side directly overlying the sympathetic chain. After negative aspiration for heme or cerebrospinal fluid, 8 mL of a solution containing bupivacaine 0.5% along with 1 mL of triamcinolone 40 mg/mL was injected slowly. Needle was then retracted approximately half way, flushed with 1 mL bupivacaine 0.5% and removed. Sterile bandage placed over injection site. No new motor deficits present in lower extremity following the procedure. The patient tolerated procedure well, carefully escorted to recovery room in stable condition. No apparent complications. After meeting discharge criteria, the patient discharged home. ��������������������������������������������� <ELECTRONICALLY SIGNED> ���������������������������������������� By: Talat Jimenez DO ��������������������������������������������� 06/12/18 0650 0840 1045 Talat Jimenez DO /nt
== END | disposition home or self-care (01) ==
LOC: PAIN 06:59
DX: G90.521 Complex regional pain syndrome I of right lower limb (principal); M79.671 Pain in right foot; G62.9 Polyneuropathy, unspecified; Z79.899 Other long term (current) drug therapy; Z79.891 Long term (current) use of opiate analgesic

== ENCOUNTER → 2018-06-04 | Outpatient (CLI) | payer BC ==
[~2018-06-04] VITALS: Ht 160 cm; Wt 62.1 kg
[2018-06-04 13:03] VITALS: BP 125/85
--- NOTE | 2018-06-04 13:09 | NUR ---
Pain Clinic Assessment: 1. History of Osteoarthritis: NO History of Rheumatoid Arthritis: NO 2. Height: 5 ft. 3 in. 160.0 cm. Weight: 137.0 lb. oz. 62.143 kg. Patient's BMI: 24.3 3. Vital Signs: BP: 125/85 Pulse: 90 Resp: 16 Temp: 02 Sat: 100 ECG Mon: 4. Pain Intensity: 5-6 5. Fall Risk: Dizziness: N Needs help standing or walking: N Fallen in the last 3 months: N Fall risk comments: 6. Patient on Blood Thinner: None 7. History of Hypertension: N 8. Opioid Therapy greater than 6 weeks: N Opiate Contract Signed: 9. Risk Assessment Tool Provided: 3-LOW RISK 10. Functional Assessment Tool: 11. Recreational Drug Use: Never Drug Type: Tobacco Use: Never Smoker Tobacco Type: Amount or Packs/day: How Many Years: Alcohol Use: Yes Frequency: Quant:
--- NOTE | 2018-06-24 15:33 | HPC ---
[facility] [address] [place] [address] PAIN MANAGEMENT CONSULTATION Name: SANDHYA HALL Duran Room #: REG [facility] Jose Luis.#: [id number] Admission: 06/04/18 ������������������ Attend Phys: Monroe Aviles MD Discharge: ������������������ Date of : 82 Report #: [id number] THIS REPORT FOR: //name// CC: [facility] physician/PCP Talat Peres REASON FOR VISIT: Followup visit for severe right foot pain status post foot surgery with early stages of complex regional pain syndrome type 1. 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 My partner, Dr. Talat Jimenez, has performed three paravertebral sympathetic nerve blocks with excellent sympathetic block, achieved raising the temperature roughly 10 degrees, improving blood flow. Pain, however, has remained fairly high and returned to baseline levels, has been rapid. I discussed with Tonie today the performance of an epidural block with the placement of an epidural catheter, preferably in the right paramedian region to provide access for repeat sympathetic/somatic nerve block. Often times, the performance of neuraxial injection can provide additional boost in pain relief necessary along with the sympathetic nerve block. We even discussed today the possibility of a continuous infusion. I have often considered the use of an On-Q pump to provide a fixed flow rate of a low dose of local anesthetic. Current systems that we have in the hospital would infuse 4 mL per hour in a 270 mL ball. We will see how the first 24 hours go and we plan to have her back in the clinic tomorrow for repeat bolus of the catheter with 0.25% bupivacaine. I have also taken the liberty of adding an opioid to the epidural mixture today for additional pain relief. Potential benefits and risks of the procedure reviewed with her today and she is anxious to proceed with a more aggressive approach. She complains today of pain at a level of 5-6, although with stimulation, even light touch, allodynic pain increases to a 9 or so. Fortunately, most of the pain has remained below the malleolus and the foot and is centered along the dorsal surface, plantar surface and most intense overlying her incisions. PHYSICAL EXAMINATION: VITAL SIGNS: Blood pressure is 125/85, heart rate is 90, respirations 16. BMI is 24.3. EXTREMITIES: Examination of the foot reveals hyperpathia, significant allodynia from the ankle down involving the entire foot. Normal sensation of the calf, thigh. She has some discomfort over the hip, which we presume is due to her antalgic gait. IMPRESSION: Complex regional pain syndrome type 1. [address] [address] PAIN MANAGEMENT CONSULTATION Name: SANDHYA HALL Room #: REG MELIDA Escobar#: [id number] Admission: 06/04/18 ������������������ Attend Phys: Monroe Aviles MD Discharge: ������������������ Date of : 82 Report #: [id number] PROCEDURE: Lumbar epidural catheter for injection of local anesthetic to provide sympathetic and somatic nerve block. She was taken to fluoroscopic suite, placed prone, skin prepped with ChloraPrep. Skin anesthetized on the right of midline at L4-L5. On the first attempt, a Tuohy epidural needle was advanced in the epidural space with loss of resistance. There were no blood or CSF aspirated. I then injected 4 mL of 0.25% bupivacaine. This was followed by 1 mL of Omnipaque to demonstrate excellent epidural spread, almost exclusively to the right along the lateral recess and extending into the neural foramen. The tip of the catheter resting at L2. An additional injection of 2 additional mL of 0.25% bupivacaine spread did dive from about L1 through L5. She is felt to be superb position for performance of additional blocks. The skin was prepped with Mastisol and Steri-Drape was applied over the entire area. The catheter was secured over her shoulder. She was taken to recovery room where she was observed for a short time. We did provide 1 additional injection, 2 mL of 0.25% bupivacaine with 50 mg of fentanyl. It should be noted that her pain relief was dramatic and immediate following the local anesthetic to 0. There is improvement in the sympathetic tone into the foot as well and color improved. Plan to follow up early tomorrow morning. We will provide another bolus injection and make a decision on sending her home with a continuous infusion with the use the On-Q pump. ��������������������������������������������� <ELECTRONICALLY SIGNED> ���������������������������������������� By: Monroe Aviles MD ��������������������������������������������� 06/24/18 1533 1739 2244 Monroe Aviles MD /nt
== END | disposition home or self-care (01) ==
LOC: PAIN 09:27
DX: G90.521 Complex regional pain syndrome I of right lower limb (principal); Z79.899 Other long term (current) drug therapy; Z98.890 Other specified postprocedural states
CPT/HCPCS: 65075

== ENCOUNTER → 2018-06-05 | Outpatient (CLI) | payer BC ==
[~2018-06-05] VITALS: Ht 160 cm; Wt 62.1 kg
[~2018-06-05] MED LIST changes: -NORTRIPTYLINE H25 M3 PO
--- NOTE | ~2018-06-05 | HPC ---
[facility] [place] [address] PAIN MANAGEMENT CONSULTATION Name: SANDHYA HALL Duran Room #: REG MELIDA Goodson.#: [id number] Admission: 06/05/18 Attend Phys: Nay Luis MD Discharge: Date of : 82 Report #: [id number] THIS REPORT FOR: //name// CC: [facility] physician/PCP ROBERTO Luis DATE OF SERVICE: 06/05/2018 HISTORY OF PRESENT ILLNESS: Followup visit for severe right foot pain. Early phase complex regional pain syndrome type 1. The patient returns to clinic today in followup. She is in tears when I entered the room. Her block wore off about 7:00 p.m. last night. The pain was fairly severe throughout the night. At this point in time, she scores it as a 6 in her foot and a 9 in her back. She developed some back spasm. We reviewed her epidural placement yesterday. It went very smoothly with needle placement on the first attempt. The catheter threaded also on the first attempt. The site looks fine. There is no localized swelling. She does not have any new neuropathic symptoms. I think it is just hyperalgesic muscle spasm, which hopefully will improve today. She continues to complain of pain in her foot, which is burning, sharp, stabbing, tender. On a very positive note today on exam, the field of discomfort and allodynia is now directly overlying the incision and there is no longer allodynia below the ankle in the forefoot as we had seen earlier. I believe that the injections have continued to limit the pain now to more somatic pain with some sympathetic features. She has no radiating pain, upper leg, other than that pain which is likely due to her antalgic gait. She did not take the imipramine as discussed. I reviewed in detail with her the rationale for using this in pain processing and I am hopeful that she will institute that tonight at 10 mg p.o. at bedtime. We discussed further options for the epidural catheter. We could send her home with a continuous infusion, although we have not done this and I am reluctant to do so due to the possibility of complications, particularly in the face of upcoming severe blizzard weather. I think the likelihood of a problem with the infusion is small, but to take. She can stay in the hospital on an observation bed. This would be solely to observe her while we ran a continuous infusion over the weekend. The third option is to dose her today and perhaps later in the day. It will be an upcoming weekend again with poor weather. In that situation, we would possibly leave the catheter until Friday morning, again resume bolusing if necessary. I am hopeful if we see no further extension of the sympathetic pain. We may be able to dose the catheter 1 or 2 more times and pull it. [address] [address] PAIN MANAGEMENT CONSULTATION Name: SANDHYA HALL [facility] #[facility] [id number] Admission: 06/05/18 Attend Phys: Nay Luis MD Discharge: Date of : 82 Report #: [id number] PHYSICAL EXAMINATION: GENERAL: Today, she is tearful, crying when I entered the room, complaining of severe pain. VITAL SIGNS: Blood pressure 110/67, heart rate 80, respirations 18. BMI is 24.3. MUSCULOSKELETAL: Examination of the foot shows that the visual inspection is much improved from yesterday! The foot was somewhat mottled and cold. Incision, a bit of a purplish color. Today, the foot is warm. The incision looks pink. There is no allodynia as much other than the area directly overlying the incision between the fourth and fifth metacarpal and along the medial aspect of the foot. There is no swelling. IMPRESSION: Chronic intractable pain with early stages of complex regional pain syndrome. I think the sympathetic blocks perform this week have done nice job in limiting the field of pain and will hopefully prevent progression of this condition. PLAN: 1. Continue with medication management as prescribed. She has Lyrica and hydrocodone and we have added the tricyclic antidepressant, imipramine, for bedtime. I would like to increase this as tolerated to 20 mg and then 30 mg over the next week or two. 2. We have discussed weight gain, which is a concern for her with the tricyclics. I believe that she monitors her intake carefully and we can get her exercising that we can manage the side effect of the imipramine. We discussed dry mouth and dizziness and daytime hangover. Today, we injected the catheter at 9:30 a.m. with an additional 6 mL of 0.25% bupivacaine and within 5 minutes, the pain had decreased to 0 in the area of allodynia. She will be observed for an hour or two. We may consider redosing the catheter again today while we still have nurses and physicians in the clinic. Followup visit planned by texting on the telephone to check in and she can call at any time, I have given her my phone number. By: [id number] Monroe Aviles MD /nt
[2018-06-05 09:09] VITALS: BP 110/67
== END | disposition home or self-care (01) ==
LOC: PAIN 06:49
DX: G90.521 Complex regional pain syndrome I of right lower limb (principal); Z79.899 Other long term (current) drug therapy

== ENCOUNTER → 2018-06-08 | Outpatient (CLI) | payer BC ==
[~2018-06-08] VITALS: Ht 160 cm; Wt 62.1 kg
--- NOTE | ~2018-06-08 | HPC ---
[facility] [place] [address] PAIN MANAGEMENT CONSULTATION Name: SANDHYA HALL Room #: REG MELIDA Goodson.#: [id number] Admission: 06/08/18 Attend Phys: Monroe Aviles MD Discharge: Date of : 82 Report #: [id number] THIS REPORT FOR: //name// CC: FAM physician/PCP ROBERTO Aviles DATE OF SERVICE: 06/08/2018 Followup visit for complex regional pain syndrome. HISTORY OF PRESENT ILLNESS: The patient returns to clinic today for additional dosing for epidural catheter. She has done better over the weekend. Dr. Luis gave her 1 mg of Duramorph, which has a longer duration of action due to its lipophilic properties within the spinal fluid. She felt much better over the weekend than the week before. Her plan is to dose the catheter again today, tomorrow and then pull the catheter either tomorrow or Friday. Site looks good. Dressing is intact. There is no significant redness or tenderness. Her foot also looks better. Color is much better. Again only discomfort and light touch allodynia overlying the scar. The field of pain now exists only around the area of injury. IMPRESSION: Complex regional pain syndrome type 1. PROCEDURE: Repeat sympathetic block via epidural catheter with additional Duramorph. After negative aspiration, I injected the catheter. The first time was 6 mL of 0.25% bupivacaine. She was observed for an hour or two without significant complication. A second injection was then provided just before she left the clinic around 1:30 using 2 mg of preservative-free morphine mixed with an additional 4 mL of 0.25% bupivacaine. I anticipate she will tolerate the epidural morphine at low dose well given her tolerance to opioids. She has been using up to 4 hydrocodone per day with an MME of 40. I am optimistic that the sympathetic component of this pain syndrome may have turned the corner. By: [id number] Monroe Aviles MD /nt
[2018-06-08 11:02] VITALS: BP 117/75
== END | disposition home or self-care (01) ==
LOC: PAIN 09:24
DX: G90.521 Complex regional pain syndrome I of right lower limb (principal); M19.90 Unspecified osteoarthritis, unspecified site; Z79.899 Other long term (current) drug therapy

== ENCOUNTER → 2018-06-09 | Outpatient (CLI) | payer BC ==
[~2018-06-09] VITALS: Ht 160 cm; Wt 62.1 kg
[2018-06-09 11:45] VITALS: BP 114/80
--- NOTE | 2018-06-09 11:45 | NUR ---
Pain Clinic Assessment: 1. History of Osteoarthritis: NO History of Rheumatoid Arthritis: CRP WAS ELEVATED SUMMER DX WITH INFLAMMATORY ARTHRITIS, DIAGNOSED TO BE POST VIRAL 2. Height: 5 ft. 3 in. 160.0 cm. Weight: 137.0 lb. oz. 62.143 kg. Patient's BMI: 24.3 3. Vital Signs: BP: 114/80 Pulse: 86 Resp: 16 Temp: 02 Sat: 100 ECG Mon: 4. Pain Intensity: 7-foot,back-1 5. Fall Risk: Dizziness: N Needs help standing or walking: N Fallen in the last 3 months: N Fall risk comments: 6. Patient on Blood Thinner: None 7. History of Hypertension: N 8. Opioid Therapy greater than 6 weeks: N Opiate Contract Signed: 9. Risk Assessment Tool Provided: 3-LOW RISK 10. Functional Assessment Tool: 11. Recreational Drug Use: Never Drug Type: Tobacco Use: Never Smoker Tobacco Type: Amount or Packs/day: How Many Years: Alcohol Use: Yes Frequency: Quant:
--- NOTE | 2018-06-12 06:50 | HPC ---
[facility] [address] [place] [address] PAIN MANAGEMENT CONSULTATION Name: SANDHYA HALL Duran Room #: REG MELIDA Jose LuisJavier.#: [id number] Admission: 06/09/18 Attend Phys: Talat Jimenez DO Discharge: Date of : 82 Report #: [id number] THIS REPORT FOR: //name// CC: [facility] physician/PCP Talat KEITH Referring Physician DATE OF SERVICE: 06/09/2018 CHIEF COMPLAINT: Right foot pain. HISTORY OF PRESENT ILLNESS: As you know, the patient is a very pleasant 38-year-old female who returns today in followup visit for additional dosing via epidural catheter to address right foot complex regional pain syndrome type 1. The patient underwent 2 injections via the epidural catheter with my partner, Dr. Monroe Aviles, over the past couple of days with good and prolonged efficacy. The formula is Duramorph 1 mg to 2 mg along with bupivacaine 0.5%. The patient reported good improvement in symptoms lasting for up to 24-48 hours. She returns today to undergo infusion of the epidural catheter with more medication in hopes of improving her complex regional pain syndrome further. Plan is to have the patient undergo reinfusion tomorrow and then pull the catheter with hopes of prolonged pain improvement. If this is ineffective, we are discussing the possibility of inpatient continuous lidocaine infusion to be planned if necessary. She returns for additional bolusing of epidural catheter. ALLERGIES: No known drug allergies. CURRENT MEDICATIONS: Lyrica, hydrocodone, topiramate, Vyvanse, Fioricet, rizatriptan. SOCIAL HISTORY: The patient denies tobacco, alcohol, IV or illicit drug use. She is working, not receiving workmen's compensation, unaccompanied today. IMAGING: No new imaging available. PHYSICAL EXAMINATION: VITAL SIGNS: Blood pressure 114/80, pulse 86, respiratory rate 16 and unlabored. The patient is 100% on room air. Height 5 feet 3 inch tall, weight 137 pounds, BMI calculated 24.3. GENERAL: Well-developed, well-nourished, well-hydrated 38-year-old female, appearing stated age, placing current pain score at around 7/10. HEENT: Normocephalic, atraumatic. Pupils equal, round, reactive to light. EXTREMITIES: Show no clubbing, no cyanosis. There is noted mottling of the foot all the way up to the ankle. There is allodynia noted over the fourth digit on the right. Also, some allodynia lateral forefoot and allodynia over [facility] [address] [place] [address] PAIN MANAGEMENT CONSULTATION Name: SANDHYA HALL Room #: REG [facility]#: [id number] Admission: 06/09/18 Attend Phys: Talat Jimenez DO Discharge: Date of : 82 Report #: [id number] the incision on the medial portion of the foot. ASSESSMENT: Complex regional pain syndrome type 1. PLAN: The patient returns today in followup visit for infusion of medication via the epidural catheter to reduce sympathetic flow. She has done very well with 2 previous injections, returning today to undergo the next in the series. PROCEDURE NOTE DESCRIPTION OF PROCEDURE: Infusion via epidural catheter. The patient was advised the risks and benefits of repeating epidural infusions. She was consented to undergo the procedure. She was placed in a semi-recumbent position. The catheter injection site was cleaned sterilely. After negative aspiration for heme, 8 mL of a solution containing 2 mL of Duramorph 0.5 mg per mL, total of 1 mg dose along with 6 mL bupivacaine 0.5% injected slowly. There was no resistance with injection. She was observed for one hour without significant complication. Blood pressure was monitored throughout this timeframe. She did well with this injection. She had no motor weakness with the injectate. After meeting our discharge criteria, she was discharged home. <ELECTRONICALLY SIGNED> By: Talat Jimenez DO 06/12/18 0650 1135 1225 Talat Jimenez DO /nt
== END | disposition home or self-care (01) ==
LOC: PAIN 09:40
DX: Z45.1 Encounter for adjustment and management of infusion pump (principal); G90.521 Complex regional pain syndrome I of right lower limb; Z79.899 Other long term (current) drug therapy; Z98.890 Other specified postprocedural states

== ENCOUNTER → 2018-06-10 | Outpatient (CLI) | payer BC ==
[2018-06-10 08:00] VITALS: BP 125/87
--- NOTE | 2018-06-10 08:31 | NUR ---
Pain Clinic Assessment: 1. History of Osteoarthritis: NO History of Rheumatoid Arthritis: CRP WAS ELEVATED SUMMER DX WITH INFLAMMATORY ARTHRITIS, DIAGNOSED TO BE POST VIRAL 2. Height: 5 ft. in. 152.4 cm. Weight: lb. oz. kg. Patient's BMI: 3. Vital Signs: BP: 125/87 Pulse: 96 Resp: 16 Temp: 02 Sat: 98 ECG Mon: 4. Pain Intensity: 5 5. Fall Risk: Dizziness: N Needs help standing or walking: N Fallen in the last 3 months: N Fall risk comments: 6. Patient on Blood Thinner: None 7. History of Hypertension: N 8. Opioid Therapy greater than 6 weeks: N Opiate Contract Signed: 9. Risk Assessment Tool Provided: 3-LOW RISK 10. Functional Assessment Tool: 11. Recreational Drug Use: Never Drug Type: Tobacco Use: Never Smoker Tobacco Type: Amount or Packs/day: How Many Years: Alcohol Use: Yes Frequency: Quant:
--- NOTE | 2018-06-12 06:50 | HPC ---
[facility] [place] [address] PAIN MANAGEMENT CONSULTATION Name: SANDHYA HALL Duran [facility] [id number] Admission: 06/10/18 Attend Phys: Talat Jimenez DO Discharge: Date of : 82 Report #: [id number] THIS REPORT FOR: //name// CC: [facility] physician/PCP Talat KEITH Referring Physician DATE OF SERVICE: 06/10/2018 CHIEF COMPLAINT: Right lower extremity pain secondary to complex regional pain syndrome type 1. HISTORY OF PRESENT ILLNESS: As you know, the patient is a very pleasant 38-year-old female who returns today in followup visit for further infusion via her epidural catheter. She did very well over the past 24 hours with good pain relief. She was able to tolerate her physical therapy yesterday without significant pain interference. She has improved from a standpoint that she can actually place her sock over her foot without excruciating pain and to be able to wear her shoe today. She returns today in followup visit for infusion via her epidural catheter and for explantation of the catheter after the infusion. ALLERGIES: No known drug allergies. CURRENT MEDICATIONS: Lyrica, hydrocodone, topiramate, Vyvanse, Fioricet, rizatriptan. SOCIAL HISTORY: The patient denies tobacco, alcohol, IV or illicit drug use. She is working, not receiving workmen's compensation. IMAGING: No new imaging available. PHYSICAL EXAMINATION: VITAL SIGNS: Blood pressure 125/87, pulse is 96, respiratory rate 16 and unlabored. The patient is 98% on room air. GENERAL: Well-developed, well-nourished, well-hydrated 38-year-old female, appearing stated age, placing pain today at around 2-3/10. HEENT: Head is normocephalic, atraumatic. Pupils equal, round, reactive to light. EXTREMITIES: Show no clubbing. There is cyanotic changes noted again of the right foot up to the ankle, mottling of the skin is noted, but to a much lesser degree than yesterday. There is a temperature change of about 3-4 degrees when comparing right to left foot. Gait is antalgic favoring right lower extremity. There is allodynia once again noted over the fourth digit on the right as well as lateral portion of the foot and medial portion just overlying the incision. [address] [address] PAIN MANAGEMENT CONSULTATION Name: SANDHYA HALL Room #: REG MELIDA Escobar#: [id number] Admission: 06/10/18 Attend Phys: Talat Jimenez DO Discharge: Date of : 81 Report #: [id number] ASSESSMENT: 1. Complex regional pain syndrome type 1. 2. Peripheral neuropathy. 3. Chronic intractable pain. PLAN: 1. The patient returns today in followup visit having once again noted excellent benefit with a bolus of morphine and bupivacaine yesterday afternoon. She returns today with pain level of 2/10 to undergo next in the series of boluses. She has been consented to undergo the procedure, advised of the risks and states understood and wished to proceed. 2. I recommend the patient continue on current medication therapy. We will make no changes in her medication management at this time. PROCEDURE NOTE: DESCRIPTION OF PROCEDURE: Infusion via epidural catheter with explantation of the catheter. After obtaining written consent, the patient was taken back to our semi-sterile room; she was placed in a semirecumbent position. Catheter was accessed via the access port on the right upper arm. The catheter was cleaned and prepped with alcohol. An infusion of 1 mg morphine with 2 mL of morphine 0.5 mg per mL along with 5 mL of bupivacaine 0.5% was injected slowly. There was no resistance to the infusion. She tolerated this infusion well. She was monitored for over 30 minutes of time without loss of sensation in the leg, nor was there any change in blood pressure. She did well with this initial injection. We had the patient return again 4 hours later, undergoing second infusion of medication. The catheter port was cleaned sterilely. Next, 5 mL of a solution containing 2 mL, 0.5 mg per mL morphine, preservative-free, total of 1 mg, and 3 mL bupivacaine 0.5% was injected without complication. There was no resistance to the infusion. The patient was then monitored for 45 minutes without significant complication. She did have some heaviness in the leg, but no mandy motor weakness. There was loss of tactile sensation as expected with this type of infusion. After monitoring the patient for this time, the catheter was then removed without complication. The catheter bandaging was removed initially followed by the catheter itself. Catheter explantation caused no discomfort, no paresthesias. The catheter was fully intact with the tip noted in position after explantation. Sterile bandage was placed over the injection site. The patient tolerated both procedures well. After meeting our discharge criteria from our clinic, she was then discharged home. <ELECTRONICALLY SIGNED> By: Talat Jimenez DO 06/12/18 0650 1159 1220 Talat Jimeenz DO /nt
== END | disposition home or self-care (01) ==
LOC: PAIN 07:50
DX: G90.521 Complex regional pain syndrome I of right lower limb (principal); G62.9 Polyneuropathy, unspecified; Z79.899 Other long term (current) drug therapy

== ENCOUNTER → 2018-06-30 | Outpatient (CLI) | payer BC ==
[~2018-06-30] VITALS: Ht 160 cm; Wt 62.1 kg
[~2018-06-30] MED LIST changes: +NORTRIPTYLINE H25 M3 PO
[2018-06-30 08:10] VITALS: BP 112/73
--- NOTE | 2018-06-30 08:32 | NUR ---
Pain Clinic Assessment: 1. History of Osteoarthritis: NO History of Rheumatoid Arthritis: CRP WAS ELEVATED SUMMER DX WITH INFLAMMATORY ARTHRITIS, DIAGNOSED TO BE POST VIRAL 2. Height: 5 ft. 3 in. 160.0 cm. Weight: 137.0 lb. oz. 62.143 kg. Patient's BMI: 24.3 3. Vital Signs: BP: 112/73 Pulse: 70 Resp: 18 Temp: 02 Sat: 100 ECG Mon: 4. Pain Intensity: 6 5. Fall Risk: Dizziness: N Needs help standing or walking: N Fallen in the last 3 months: N Fall risk comments: 6. Patient on Blood Thinner: None 7. History of Hypertension: N 8. Opioid Therapy greater than 6 weeks: N Opiate Contract Signed: 9. Risk Assessment Tool Provided: 3-LOW RISK 10. Functional Assessment Tool: 11. Recreational Drug Use: Never Drug Type: Tobacco Use: Never Smoker Tobacco Type: Amount or Packs/day: How Many Years: Alcohol Use: Yes Frequency: Quant:
--- NOTE | 2018-07-14 07:32 | HPC ---
[facility] [place] [address] PAIN MANAGEMENT CONSULTATION Name: SANDHYA HALL Duran Room #: REG MELIDA FlemingJose LuisJavier.#: [id number] Admission: 06/30/18 ������������������ Attend Phys: Talat Jimenez DO Discharge: ������������������ Date of : 82 Report #: [id number] THIS REPORT FOR: //name// CC: Talat Elias MD Physician staff DATE OF SERVICE: 06/30/2018 REFERRING PHYSICIAN: Caryn Elias M.D. CHIEF COMPLAINT: Right lower extremity pain secondary to complex regional pain syndrome type 1. HISTORY OF PRESENT ILLNESS: As you know, the patient is a 38-year-old female returning today in followup visit to undergo the second in series of ketamine infusions. The patient received benefit with the initial ketamine infusion of about 30%-40%. She states she is able to stand longer and go about her activities of daily living with more weightbearing than she had in the past. She returns today to undergo the next in a series of ketamine infusions. She does report some dysphoric effects during the infusion of our last visit, but this has resolved. She returns today to undergo the second in the series of ketamine infusions in hopes of building on success of previous intervention reducing the pain from her complex regional pain syndrome involving the right lower extremity. ALLERGIES: No known drug allergies. CURRENT MEDICATIONS: Lyrica, hydrocodone, topiramate, Vyvanse, Fioricet and rizatriptan. SOCIAL HISTORY: The patient denies tobacco, alcohol or IV or illicit drug use. She is working, not receiving workmen's compensation, unaccompanied today. IMAGING DATA: No new imaging available. PHYSICAL EXAMINATION: VITAL SIGNS: Blood pressure 112/73, pulse is 70 and respiratory rate 18 and unlabored. The patient is 100% on room air. GENERAL: Well-developed, well-nourished and well-hydrated 38-year-old female, appearing her stated age. She is placing pain today at around 6/10. She does report some sore throat and mild nausea today. HEENT: Normocephalic and atraumatic. Pupils equal, round and reactive to light. Extraocular muscles are intact. Speech fluent. EXTREMITIES: Show no clubbing. There is cyanotic changes noted over the right [address] [address] PAIN MANAGEMENT CONSULTATION Name: SANDHYA HALL Room #: REG [facility]#: [id number] Admission: 06/30/18 ������������������ Attend Phys: Talat Jimenez DO Discharge: ������������������ Date of : 82 Report #: [id number] foot, ankle as well. Temperature change of 2 degrees when comparing the dorsum of the right to the dorsum of the left foot. Gait is antalgic favoring right lower extremity. There is noted allodynia and hyperalgesia in a nondermatomal distribution involving the right lower extremity. ASSESSMENT: 1. Complex regional pain syndrome type 1. 2. Peripheral neuropathy. 3. Chronic intractable pain. PLAN: 1. The patient returns today in followup visit having indicated improvement with the initial ketamine infusion. She is now able to stand for longer periods of time and is able to go about her activities of daily living without significant pain interference. She returns today in followup visit to undergo the next in the series of ketamine infusions in hopes of building on success of previous intervention. The patient was advised risks and benefits, states understood and wished to proceed. 2. The patient to continue current medication management and we will adjust medications based on efficacy with this infusion. PROCEDURE NOTE DESCRIPTION OF PROCEDURE: Ketamine infusion with monitoring. After obtaining written consent, the patient was placed in a supine position. A 20-gauge Angiocath was then placed in the patient's right antecubital fossa. The patient was kept in supine position with head of bed elevated to approximately 30 degrees. EKG, pulse oximetry, and blood pressure were monitored throughout the procedure. Infusion was to run initially over 1-hour period of time with 100 mg ketamine in 100 mL of normal saline. The initial infusion was done without complications. The patient did note some relaxation and some dysphoric effects. The patient tolerated the original infusion well and her pain was reduced. She continued to monitor for another hour without infusion. After completing the second hour, the infusion was then reinitiated with 100 mg, ketamine and 100 mL of normal saline. This was run at 100 mL in 1 hour to complete the process. She did note changes within the foot from a discomfort standpoint was also noted some dysphoric effects affecting her cognition and some visual hallucinations. We did reduce the infusion rate to 80 mL per hour and continue the infusion for its entirety. She received 200 mg ketamine over a 3-hour period. She then remained with our services for another hour after the second portion of the ketamine infusion to confirm resolution of the dysphoric effects. She was reporting improvement in pain at that time giving a pain score of 0/10 upon discharge. She was assisted by our staff and her to awaiting vehicle and sent home after meeting our discharge criteria. She tolerated the infusion well. The response was excellent with [facility] [address] [place] [address] PAIN MANAGEMENT CONSULTATION Name: SANDHYA HALL Room #: REG MELIDA GoodsonJose Luis#: [id number] Admission: 06/30/18 ������������������ Attend Phys: Talat Jimenez DO Discharge: ������������������ Date of : 82 Report #: [id number] 0/10 pain from a reported initial pain score of 6/10. We discontinue our vital signs monitoring. After meeting all criteria and she was then discharged home. ��������������������������������������������� <ELECTRONICALLY SIGNED> ���������������������������������������� By: Talat Jimenez DO ��������������������������������������������� 07/14/18 0732 0745 0818 Talat Jimenez DO /nt
== END ==
LOC: PAIN 06:35
DX: G90.521 Complex regional pain syndrome I of right lower limb (principal); G62.9 Polyneuropathy, unspecified

== ENCOUNTER → 2018-07-21 | Outpatient (CLI) | payer BC ==
[~2018-07-21] VITALS: Ht 160 cm; Wt 62.1 kg
--- NOTE | ~2018-07-21 | HPC ---
[facility] [place] [address] PAIN MANAGEMENT CONSULTATION Name: SANDHYA HALL Room #: REG MELIDA Hamzah.#: [id number] Admission: 07/21/18 ������������������ Attend Phys: Talat Jimenez DO Discharge: ������������������ Date of : 82 Report #: [id number] THIS REPORT FOR: //name// CC: Talat Elias MD Physician staff DATE OF SERVICE: 07/21/2018 REFERRING PHYSICIAN: Caryn Elias M.D. CHIEF COMPLAINT: Right foot pain. HISTORY OF PRESENT ILLNESS: As you know, the patient is a very pleasant 38-year-old female who has been treated by [facility] for complex regional pain syndrome type 1 of the right lower extremity. The patient underwent surgery of the right foot but began to experience increasing pain and paresthesias along with changes in hair growth and nail growth. It was determined that the patient is suffering complex regional pain syndrome type 1 and she was started on medications. We have escalated dose of medications with some improvement in symptoms. She is now reporting pain score around 2/10. She has undergone medication management orally but has also undergone ketamine infusions in hopes of improving her complex regional pain syndrome symptoms. We did receive benefit with the ketamine but unfortunately, her symptoms have begun to return. She is looking forward to a spinal cord stimulator trial, but at present wishes to adjust medications further. We may changes recently adding nortriptyline, which the patient noted good efficacy but was experiencing some constipation issues at 100 mg dose. She wishes to discuss this again today. She denies new injury, new trauma or any changes in medical history since our last visit. ALLERGIES: No known drug allergies. CURRENT MEDICATIONS: Lyrica, hydrocodone, topiramate, Vyvanse, Fioricet, rizatriptan and nortriptyline. SOCIAL HISTORY: The patient denies tobacco, alcohol, IV or illicit drug use. She is working, not receiving workmen's compensation, unaccompanied today. IMAGING DATA: No new imaging available. PHYSICAL EXAMINATION: VITAL SIGNS: Blood pressure 117/71, pulse 102 and respiratory rate 16 and unlabored. The patient 99% on room air. Height 5 feet 3 inches tall, weight 137 pounds and BMI calculated 24.3. [place] [address] PAIN MANAGEMENT CONSULTATION Name: SANDHYA HALL Room #: REG [facility]#: [id number] Admission: 07/21/18 ������������������ Attend Phys: Talat Jimenez DO Discharge: ������������������ Date of : 81 Report #: [id number] GENERAL: Well-developed, well-nourished, well-hydrated 38-year-old female, appearing her stated age, placing current pain score around 2/10. HEENT: Normocephalic and atraumatic. Pupils equal, round and reactive to light. Extraocular muscles are intact. Speech fluent. EXTREMITIES: Show no clubbing and no cyanosis. There are definitive changes of the nails the right foot with what appears to be some scaling. There are changes also noted of the hair growth on the right side when compared to left. Noted rubor of the skin over parts of the foot and mottling of the skin itself. There is a temperature change of 3 degrees when comparing right lower extremity to left. ASSESSMENT: 1. Complex regional pain syndrome type 1. 2. Peripheral neuropathy. 3. Chronic intractable pain. PLAN: 1. The patient returns today in followup visit with continued pain involving the right foot. There has been some increase in the area of discomfort, which is concerning for progression of the complex regional pain syndrome. We had made adjustments in the patient's medication adding nortriptyline in the evening hours. This would help with the insomnia, but also help with neuropathic symptoms. We did see improvement in pain and sleep, but we have treated that for some increasing constipation issues. We discussed this with the patient today. We have requested the patient reduce the nortriptyline back to 75 mg dose to determine if her side effects of constipation improved, but she remains gaining the efficacy of the medication. She will make this adjustment today. As for the potential for moving forward with a spinal cord stimulator, we are continuing to move towards that direction. We have started the prior authorization process to undergo the trial implant if this is unsuccessful and then move forward with the permanent implant. We discussed this again at our clinic visit today. 2. The patient will continue on hydrocodone 10/325 one tab p.o. q. 4 hours p.r.n. for pain and I have given the patient #150 with no refills. The patient was advised to continue the medication as directed. If she needs refills, she can contact our clinic. 3. The patient was provided a refill prescription of nortriptyline 25 mg dose. She can take 75 to 100 mg p.o. at bedtime depending on potential of side effects and improvement in symptoms. She was given the prescription of #120 tablets, no refills. 4. The patient was provided refill prescription of her Lyrica 150 mg dose 1 tab p.o. b.i.d. I have given the patient #60 tablets, no refills, one month worth of medication. 5. We will see the patient back in followup visit in 1 month. At that time, we will discuss further efficacy of the medication and any other changes necessary [address] [place] [address] PAIN MANAGEMENT CONSULTATION Name: SANDHYA HALL Room #: REG MELIDA Escobar#: [id number] Admission: 07/21/18 ������������������ Attend Phys: Talat Jimenez DO Discharge: ������������������ Date of : 81 Report #: [id number] as well as discussed the progress of the spinal cord stimulator as a treatment option. ��������������������������������������������� ���������������������������������������� By: ��������������������������������������������� 1237 26 Talat Jimenez DO /nt
[2018-07-21 08:19] VITALS: BP 117/71
--- NOTE | 2018-07-21 08:21 | NUR ---
Pain Clinic Assessment: 1. History of Osteoarthritis: NO History of Rheumatoid Arthritis: CRP WAS ELEVATED SUMMER DX WITH INFLAMMATORY ARTHRITIS, DIAGNOSED TO BE POST VIRAL 2. Height: 5 ft. 3 in. 160.0 cm. Weight: 137.0 lb. oz. 62.143 kg. Patient's BMI: 24.3 3. Vital Signs: BP: 117/71 Pulse: 102 Resp: 16 Temp: 02 Sat: 99 ECG Mon: 4. Pain Intensity: 2 5. Fall Risk: Dizziness: N Needs help standing or walking: N Fallen in the last 3 months: N Fall risk comments: 6. Patient on Blood Thinner: None 7. History of Hypertension: N 8. Opioid Therapy greater than 6 weeks: N Opiate Contract Signed: 9. Risk Assessment Tool Provided: 3-LOW RISK 10. Functional Assessment Tool: 11. Recreational Drug Use: Never Drug Type: Tobacco Use: Never Smoker Tobacco Type: Amount or Packs/day: How Many Years: Alcohol Use: Yes Frequency: Special Occasions Quant: 1-2
== END ==
LOC: PAIN 06:41
DX: G89.4 Chronic pain syndrome (principal); G90.50 Complex regional pain syndrome I, unspecified; G90.09 Other idiopathic peripheral autonomic neuropathy; Z79.899 Other long term (current) drug therapy; Z72.89 Other problems related to lifestyle

== ENCOUNTER → 2018-12-16 | Outpatient (CLI) | payer BC ==
[~2018-12-16] VITALS: Ht 160 cm; Wt 59.9 kg
[~2018-12-16] MED LIST changes: +CALCIUM 600 +1 EAC1 PO; +HYDROXYCHLOROQ200 M1 PO; +LIORESAL 10 MG10 MG PO; +LYRICA 75 MG CA75 MG PO; +VITAMIN D31000 UNIT PO; +XYZAL5 MG PO
[2018-12-16 08:12] VITALS: BP 116/76
--- NOTE | 2018-12-16 08:21 | NUR ---
Pain Clinic Assessment: 1. History of Osteoarthritis: NO History of Rheumatoid Arthritis: DX'D WITH INFLAMMATORY ARTHRITIS 12/04 NO SPECIFIC DX'S AT THIS TIME-YET. TREATING CURRENTLY-THEN WILL EXPLORE REASONS LATER 2. Height: 5 ft. 3 in. 160.0 cm. Weight: 132.0 lb. oz. 59.875 kg. Patient's BMI: 23.4 3. Vital Signs: BP: 116/76 Pulse: 107 Resp: 14 Temp: 02 Sat: 100 ECG Mon: 4. Pain Intensity: 3-4 5. Fall Risk: Dizziness: N Needs help standing or walking: N Fallen in the last 3 months: N Fall risk comments: 6. Patient on Blood Thinner: None 7. History of Hypertension: N 8. Opioid Therapy greater than 6 weeks: N Opiate Contract Signed: 9. Risk Assessment Tool Provided: 3-LOW RISK 10. Functional Assessment Tool: 11. Recreational Drug Use: Never Drug Type: Tobacco Use: Never Smoker Tobacco Type: Amount or Packs/day: How Many Years: Alcohol Use: Yes Frequency: Special Occasions Quant: 2-3
--- NOTE | 2018-12-22 09:15 | HPC ---
[facility] [address] [place] [address] PAIN MANAGEMENT CONSULTATION Name: SANDHYA HALL Duran Room #: REG MELIDA Hamzah.#: [id number] Admission: 12/16/18 ������������������ Attend Phys: Taalt Jimenez DO Discharge: ������������������ Date of : 81 Report #: [id number] THIS REPORT FOR: //name// CC: Talat KEITH Physician staff DATE OF SERVICE: 12/16/2018 CHIEF COMPLAINT: Right foot pain. HISTORY OF PRESENT ILLNESS: As you know, the patient is a very pleasant 38-year-old female who returns today in followup visit for medication management. She believes medications are beneficial for pain control. She had some side effects with the Lyrica, but adjustments in that medication over the past month have improved those side effects of sleepiness, disorientation, confusion and mental slowing. She continues workup via Rheumatology in regards to generalized joint pain and an elevated CRISTINA. No definitive diagnosis was confirmed that evaluation. She does suffer from complex regional pain syndrome of the right foot, status post surgery. We have been adjusting her medications and have started to see some benefit. She states over the past 4 weeks, her pain has begun to improve. She is now placing a pain score at level of 3/10, but can raise as high as 8/10 with activity. She returns today in followup visit for adjustments in medication management. We continued the process of preapprovals to have the patient undergo spinal cord stimulator trial implantation with the intention of hopefully improving pain further and being able to remove the medications that are causing somnolence with elevated doses trying to obtain better pain control. She returns today for medication management and to discuss continuing the process of preapprovals. ALLERGIES: No known drug allergies. CURRENT MEDICATIONS: Lyrica, hydrocodone, topiramate, Vyvanse, Fioricet, rizatriptan, nortriptyline. SOCIAL HISTORY: The patient denies tobacco, alcohol, IV or illicit drug use. She is working, not receiving workmen's compensation, unaccompanied today. IMAGING: No new imaging available. PHYSICAL EXAMINATION: VITAL SIGNS: Blood pressure 116/76, pulse 107, respiratory rate 14 and unlabored. The patient is 100% on room air. Height 5 feet 3 inches tall, weight 132 pounds, BMI calculated 23.4. GENERAL: Well-developed, well-nourished, well-hydrated 38-year-old female, appearing her stated age, pain is rated around 3/10[place] [address] PAIN MANAGEMENT CONSULTATION Name: SANDHYA HALL Room #: REG [facility]#: [id number] Admission: 12/16/18 ������������������ Attend Phys: Talat Jimenez DO Discharge: ������������������ Date of : 81 Report #: [id number] HEENT: Normocephalic, atraumatic. Pupils are equal, round, and reactive to light. EXTREMITIES: Show no clubbing, no cyanosis, and no edema. MUSCULOSKELETAL: Definitive changes of the nail on the right foot when compared to left. There are also changes in hair growth on the right when compared to left foot. There are rubor and color changes of the skin of the right foot with mottling of the skin on the dorsal surface. There are temperature changes noted as well. ASSESSMENT: 1. Complex regional pain syndrome type 1. 2. Peripheral neuropathy. 3. Chronic intractable pain. PLAN: 1. The patient returns today in followup visit where we have discussed at length the efficacy of medications. We have been able to improve some of the side effects of the medication by making adjustments in the Lyrica. The patient is comfortable with current medication dosing, but does indicate that her pain is present on a daily basis. She wishes to continue the process of preauthorization for the spinal cord stimulator as she does wish to come off the medications as she can due to the side effects she is experiencing. I am in agreement with the patient and will continue that process at present. We will continue the patient on her current medications. 2. The patient was provided refill prescription of Celebrex 200 mg dose 1 tab p.o. q. 12 hours. I have given the patient #60 with 2 refills. This is provided for anti-inflammatory effects. 3. The patient was provided prescription of Topamax 50 mg dose 1 tab every 8 hours. She is to take 2 tabs 3 times a day. I have given the patient #150 tablets with 2 refills, 3 months' worth of medication. 4. The patient was provided a refill prescription of Lyrica 75 mg dose 1-2 tabs per day. I have given the patient #60 tablets, releasing today with 2 refills. 5. The patient was provided a prescription of hydrocodone 10/325 one tab p.o. q. 4 hours p.r.n. for pain. I have given the patient #150 to take as necessary for pain control. 6. We reviewed the fact that opiate medications are being used to provide analgesia adequate to support activities of daily living, not attempting to achieve a specific pain score on the 0-10 Visual Analog Scale. The current opiate medications are providing sufficient analgesia to allow the patient to participate in activities of daily living. The patient is not exhibiting any aberrant behavior suggestive of drug diversion. The patient is not having any adverse reactions to medications. The patient is not suffering from daytime somnolence or mental acuity changes. The patient is managing opiate-induced constipation with appropriate byfi-nep-leolhnx agents and dietary considerations. The patient was counseled on concern for caution with operating a motor vehicle while using opiate medications. [facility] [address] [place] [address] PAIN MANAGEMENT CONSULTATION Name: SANDHYA HALL Duran [id number] Admission: 12/16/18 ������������������ Attend Phys: Talat Jimenez DO Discharge: ������������������ Date of : 81 Report #: [id number] A physical exam was performed and the patient's functional status was evaluated. All patients with back pain were advised against the bed rest greater than 4 days and were advised to return to normal activities. Pain score assessment was noted and the treatment plan was reviewed with the patient. All current medications, both prescribed and OTC were reviewed and reconciled on the electronic medical record. Tobacco screening was accomplished and smoking cessation was advised when indicated. BMI was noted and diet/exercise modification was recommended for all patients following outside normal parameters. I reviewed with the patient today their responsibilities to safeguard prescription medications, reviewed their responsibility to utilize medications only as prescribed by the physician. They are to seek and receive pain medications only from 1 physician group ([facility]). They are to use 1 pharmacy and keep the clinic informed if they change pharmacies. Their responsibilities include making followup visits in a timely fashion and to avoid abrupt discontinuation of medication usage. Their responsibilities further include bringing their medications (bottles from the pharmacy with residual pills) to the visit for possible confirmation of pill counts and the patient understands it is their responsibility to submit to random drug screens to ensure both that the medications prescribed are present, and that no other controlled substances are present. All prescriptions provided today were generated electronically. 7. We will see the patient back in followup visit, hopefully very soon with authorization to undergo spinal cord stimulator trial implantation. As you are aware, spinal cord stimulator has been approved for complex regional pain syndrome and this is the #1 indication for the use of the device. We wish to move forward with this as quickly as possible. We will continue the authorization process and have the patient return once this has been completed. ��������������������������������������������� <ELECTRONICALLY SIGNED> ���������������������������������������� By: Tlaat Jimenez DO ��������������������������������������������� 12/22/18 0915 0910 0147 Talat Jimenez DO /nt
== END ==
LOC: PAIN 06:44
DX: G62.9 Polyneuropathy, unspecified (principal); G90.50 Complex regional pain syndrome I, unspecified; G89.4 Chronic pain syndrome; Z79.899 Other long term (current) drug therapy

== ENCOUNTER → 2019-04-06 | Outpatient (CLI) | payer BC ==
[~2019-04-06] VITALS: Ht 160 cm; Wt 61.7 kg
[~2019-04-06] MED LIST changes: +RAYOS5 MG PO
[2019-04-06 06:59] VITALS: BP 114/76
--- NOTE | 2019-04-06 07:03 | NUR ---
Pain Clinic Assessment: 1. History of Osteoarthritis: NO History of Rheumatoid Arthritis: DX'D WITH INFLAMMATORY ARTHRITIS 12/04 NO SPECIFIC DX'S AT THIS TIME-YET. TREATING CURRENTLY-THEN WILL EXPLORE REASONS LATER 2. Height: 5 ft. 3 in. 160.0 cm. Weight: 136.0 lb. oz. 61.689 kg. Patient's BMI: 24.1 3. Vital Signs: BP: 114/76 Pulse: 101 Resp: 16 Temp: 02 Sat: 98 ECG Mon: 4. Pain Intensity: 2-3 5. Fall Risk: Dizziness: N Needs help standing or walking: N Fallen in the last 3 months: N Fall risk comments: 6. Patient on Blood Thinner: None 7. History of Hypertension: N 8. Opioid Therapy greater than 6 weeks: N Opiate Contract Signed: 9. Risk Assessment Tool Provided: 3-LOW RISK 10. Functional Assessment Tool: 11. Recreational Drug Use: Never Drug Type: Tobacco Use: Never Smoker Tobacco Type: Amount or Packs/day: How Many Years: Alcohol Use: Yes Frequency: Quant:
--- NOTE | 2019-04-07 09:19 | HPC ---
[facility] [place] [place] [address] PAIN MANAGEMENT CONSULTATION Name: SANDHYA HALL Duran Room #: REG MELIDA Jose Luis.#: [id number] Admission: 04/06/19 Attend Phys: Talat Jimenez DO Discharge: Date of : 81 Report #: [id number] THIS REPORT FOR: //name// CC: Talat KEITH Physician staff Referring Physician DATE OF SERVICE: 04/06/2019 CHIEF COMPLAINT: Right foot pain. HISTORY OF PRESENT ILLNESS: As you know, the patient is a very pleasant 39-year-old female who suffers from complex regional pain syndrome involving the right lower extremity. She returns today in followup visit having received preauthorization to undergo spinal cord stimulator trial implantation in hopes of improving the patient's right foot pain. The patient is placing pain score today at around 2-3/10. She states that pain is exacerbated with most activities. She has returned today in followup visit to undergo spinal cord stimulator trial implantation with the Nevro device in hopes of seeing improvement in symptoms secondary to a complex regional pain syndrome. She denies new injury or trauma or any changes in medical history since our last visit. ALLERGIES: No known drug allergies. CURRENT MEDICATIONS: Lyrica, hydrocodone, topiramate, Vyvanse, Fioricet, rizatriptan and nortriptyline. SOCIAL HISTORY: The patient denies tobacco, alcohol, IV or illicit drug use. She is working, not receiving workmen's compensation, unaccompanied today. IMAGING: No new imaging available. PHYSICAL EXAMINATION: VITAL SIGNS: Blood pressure is 114/76, pulse is 101, respiratory rate 16 and unlabored. The patient is 98% on room air. Height 5 feet 3 inches tall, weight 136 pounds, BMI calculated 24.1. GENERAL: Well-developed, well-nourished, well-hydrated 39-year-old female appearing stated age, pain is rated at 2-3/10. HEENT: Normocephalic, atraumatic. Pupils equal, round, reactive to light. EXTREMITIES: Show no clubbing, no cyanosis, no edema. MUSCULOSKELETAL: Lower extremity strength is symmetrical 5/5. Pain is elicited with dorsiflexion and plantar flexion of the right foot compared to left. There are changes of the right foot, both with nail texture and hair growth. There are changes in skin color over the right foot when compared to left. [address] [address] PAIN MANAGEMENT CONSULTATION Name: SANDHYA HALL [id number] Admission: 04/06/19 Attend Phys: Talat Jimenez DO Discharge: Date of : 81 Report #: [id number] Temperature variance of about 1-2 degrees on the dorsum of the foot, 2 degrees on the plantar surface of the right foot when compared to left. ASSESSMENT: 1. Complex regional pain syndrome type 1 of the right lower extremity. 2. Peripheral neuropathy. 3. Chronic intractable pain. PLAN: 1. The patient has returned today in followup visit to undergo spinal cord stimulator trial implantation in hopes of improving her right foot pain secondary to complex regional pain syndrome. She has returned today to undergo the procedure. She has been advised risks and benefits of this procedure. These risks include but are not necessarily limited to bleeding, bruising, infection, worsening pain, no relief of pain, also risk of temporary or permanent muscle weakness, temporary or permanent nerve damage, possible paralysis and . The patient states understood and wished to proceed. 2. No medication changes made at today's visit. The patient will continue current medical therapy as previously prescribed. 3. We will see the patient back in followup visit in 1 week. At that time, we will review the efficacy of today's implantation and determine if moving forward with permanent implant would be recommended. PROCEDURE NOTE DESCRIPTION OF PROCEDURE: Two lead spinal cord stimulator trial implantation under fluoroscopic guidance. After obtaining informed consent, a 22-gauge IV Hep-Lock was placed in the patient's upper extremity. The patient was given IV prophylactic antibiotic infused slowly over 30 minutes prior to procedure. The patient was then taken back to fluoroscopy suite, placed in prone position with 3 pillows under abdomen to decrease the lumbar lordosis and increase the thoracic kyphosis. Cardiopulmonary monitoring was established and the patient's vital signs were monitored throughout the procedure. The patient's thoracolumbar spine was then prepped and draped in aseptic fashion. There was no IV sedation given prior to procedure. AP imaging with the fluoroscope was obtained to identify and thao the midline position of the T10 through L2 spinous processes. Skin was anesthetized with 1% preservative-free lidocaine. A total of 7 mL on the right and 7 mL on the left. This was done prior to the introduction of the 14-gauge 4-inch Tuohy needles. Skin entry site was approximately the level of the L1 vertebral body. Needle was advanced using a paramedian approach to the right of midline at approximately 45 degree angle. Loss of resistance to air was utilized to verify placement within the epidural space. Epidural space entered at the T11-T12 [address] [address] PAIN MANAGEMENT CONSULTATION Name: SANDHYA HALL Room #: REG CLJenni Good[facility]#: [id number] Admission: 04/06/19 Attend Phys: Talat Jimenez DO Discharge: Date of : 81 Report #: [id number] interspace. Lateral fluoroscopic view obtained to confirm the position of the Tuohy needle within the epidural space. Aspiration noted to be negative for heme or cerebrospinal fluid. The patient did not complain of pain or paresthesias during needle placement. The spinal cord stimulating lead was then advanced through the Tuohy needle under direct visualization within the midline. The tip of the stimulating lead was aligned with the inferior endplate of T8 vertebral body and located in the midline. Our attention was then directed to the left side. The skin entry site on the left side was at the L1 vertebral body. The needle was advanced using a left paramedian approach towards the midline approximately 45 degree angle. Loss of resistance to air was utilized to verify placement within the epidural space. Epidural space entered at the T11-T12 interspace. Lateral fluoroscopic view obtained to confirm the position of the tip of the Tuohy needle within the epidural space. Aspiration noted to be negative for heme or cerebrospinal fluid. The patient did not complain of any pain or paresthesias during this needle placement. Spinal cord stimulating lead was then advanced through the Tuohy needle under direct visualization within the midline. Tip of the stimulating lead was aligned with the superior endplate of T9. AP and lateral imaging was obtained to confirm position of the spinal cord stimulating leads within the posterior epidural space. The stylette was then removed from each of the leads followed by the Tuohy needle. We then confirmed position of the leads with AP and lateral fluoroscopy. The leads were then anchored to the patient's back with benzoin, Steri-Strips and OpSite bandaging. The patient was then placed in a seated position and various physical maneuvers were completed to settle the leads in position. The patient was then placed back in a prone position and AP imaging was obtained to confirm position of the needles within the space and to confirm for programming the position of the leads within the epidural area. The patient tolerated procedure well, carefully escorted to recovery room, she was then provided programming and trial restrictions. After meeting our discharge criteria, the patient was then discharged home. <ELECTRONICALLY SIGNED> By: Talat Jimenez DO 04/07/19918 1 Talat Jimenez DO /nt
== END | disposition home or self-care (01) ==
LOC: PAIN 06:40
DX: G90.521 Complex regional pain syndrome I of right lower limb (principal); G62.9 Polyneuropathy, unspecified; M19.90 Unspecified osteoarthritis, unspecified site; Z98.890 Other specified postprocedural states; Z79.899 Other long term (current) drug therapy

== ENCOUNTER → 2019-04-13 | Outpatient (CLI) | payer BC ==
[~2019-04-13] VITALS: Ht 160 cm; Wt 61.7 kg
[2019-04-13 08:10] VITALS: BP 120/80
--- NOTE | 2019-04-13 08:11 | NUR ---
Pain Clinic Assessment: 1. History of Osteoarthritis: NO History of Rheumatoid Arthritis: DX'D WITH INFLAMMATORY ARTHRITIS 12/04 NO SPECIFIC DX'S AT THIS TIME-YET. TREATING CURRENTLY-THEN WILL EXPLORE REASONS LATER 2. Height: 5 ft. 3 in. 160.0 cm. Weight: 136.0 lb. oz. 61.689 kg. Patient's BMI: 24.1 3. Vital Signs: BP: 120/80 Pulse: 116 Resp: 16 Temp: 02 Sat: 100 ECG Mon: 4. Pain Intensity: 3-4 5. Fall Risk: Dizziness: N Needs help standing or walking: N Fallen in the last 3 months: N Fall risk comments: 6. Patient on Blood Thinner: None 7. History of Hypertension: N 8. Opioid Therapy greater than 6 weeks: N Opiate Contract Signed: 9. Risk Assessment Tool Provided: 3-LOW RISK 10. Functional Assessment Tool: 11. Recreational Drug Use: Never Drug Type: Tobacco Use: Never Smoker Tobacco Type: Amount or Packs/day: How Many Years: Alcohol Use: Yes Frequency: Quant:
--- NOTE | 2019-04-13 16:27 | HPC ---
[facility] [address] [place] [address] PAIN MANAGEMENT CONSULTATION Name: SANDHYA HALL Duran Room #: REG MELIDA Shawn#: [id number] Admission: 04/13/19 Attend Phys: Talat Jimenez DO Discharge: Date of : 82 Report #: [id number] THIS REPORT FOR: //name// CC: Talat KEITH Physician staff DATE OF SERVICE: 04/13/2019 CHIEF COMPLAINT: Complex regional pain syndrome of the right foot. HISTORY OF PRESENT ILLNESS: As you know, the patient is a very pleasant 39-year-old female who returns today in followup visit after trialing a Nevro spinal cord stimulating device to address neuropathic symptoms secondary to complex regional pain syndrome. The patient reports great efficacy with the allodynic portion of the patient's symptoms, reporting pain now as low as 3/10. She continues to experience "bone aching" that continues to be present despite the spinal cord stimulator. This is not unusual as spinal cord stimulators do typically help with allodynic pain secondary to neuropathy initially with long-term benefits noted for other pain generators. She returns today very pleased with response to the device reporting up to 80% improvement in overall symptoms. She is extremely happy with the device and is considering permanent implant, but returns today for explantation. She states the pain currently with the device off is intermittent, aching, sharp, throbbing, numbness, tingling, burning, stinging; exacerbated with touch, walking, putting on her shoes, standing for any length of time with the device. She was able to do all these activities with minimal pain. ALLERGIES: No known drug allergies. CURRENT MEDICATIONS: Prednisone, topiramate, pregabalin, hydrocodone, celecoxib, Xyzal, calcium carbonate, cholecalciferol, baclofen, hydroxychloroquine, Vyvanse, butalbital/acetaminophen, and rizatriptan. SOCIAL HISTORY: The patient denies tobacco, alcohol, IV or illicit drug use. She is working, not receiving workmen's compensation, unaccompanied today. IMAGING: No new imaging available. PHYSICAL EXAMINATION: VITAL SIGNS: Blood pressure 120/80, pulse is 116, respiratory rate 16 and unlabored. The patient is 100% on room air. Height 5 feet 3 inches tall, weight 136 pounds, BMI calculated 24.1. GENERAL: Well-developed, well-nourished, well-hydrated 39-year-old female appearing stated age, pain is rated around 3/10. HEENT: Normocephalic, atraumatic. Pupils equal, round, reactive to light. [address] [address] PAIN MANAGEMENT CONSULTATION Name: SANDHYA HALL Room #: REG [facility].#: [id number] Admission: 04/13/19 Attend Phys: Talat Jimenez DO Discharge: Date of : 82 Report #: [id number] EXTREMITIES: Show no clubbing, no cyanosis, no edema. MUSCULOSKELETAL: The patient has to take the leads in position on the lumbar spine. These appear to be unchanged from previous positioning. ASSESSMENT: 1. Complex regional pain syndrome of the right foot. 2. Chronic intractable pain. PLAN: 1. The patient returns today in followup visit having noted excellent benefit with the spinal cord stimulator reporting 80% improvement in overall pain. Unfortunately, she is left with some "bony pain" that was unresolved with the device, but all of the neuropathic pain and allodynia was significantly improved. She is very pleased with response of the device and is considering moving forward with permanent implant. She wishes to take the next week to 2 weeks to evaluate post-procedurally how her pain does if her pain continues at the level it was prior to the device implant. She is going to consider this as an option. She returns today for explantation of device. The patient was placed in a seated position. We removed all OpSite Steri-Strips. There were two leads in place. They had not moved from the previous positioning. There was no erythema or drainage at the insertion sites. The leads were explanted without difficulty. Both leads had 8 electrodes and their tips intact upon explantation. Sterile bandage was placed over the insertion sites. The patient was advised not to get the area wet for the next 24 hours. No medication changes made at today's visit. The patient will continue current medical therapy as previously prescribed. 2. We will see the patient back in followup visit on an as needed basis for medication management. She will contact our clinic in regards to moving forward with permanent implant and she wishes to move forward. I am pleased to see she has done well with this device and hopeful that she will consider this as an option. <ELECTRONICALLY SIGNED> By: Talat Jimenez DO 04/13/19 1627 [id number] Talat Jimenez DO /nt
== END ==
LOC: PAIN 06:43
DX: G89.4 Chronic pain syndrome (principal); Z79.899 Other long term (current) drug therapy; Z88.8 Allergy status to other drugs, medicaments and biological substances

== ENCOUNTER → 2019-07-21 | Outpatient (CLI) | payer BC ==
[~2019-07-21] VITALS: Ht 160 cm; Wt 56.7 kg
--- NOTE | 2019-07-21 12:49 | NUR ---
Pain Clinic Assessment: 1. History of Osteoarthritis: NO History of Rheumatoid Arthritis: DX'D WITH INFLAMMATORY ARTHRITIS 12/04 NO SPECIFIC DX'S AT THIS TIME-YET. TREATING CURRENTLY-THEN WILL EXPLORE REASONS LATER 2. Height: ft. in. cm. Weight: lb. oz. kg. Patient's BMI: 3. Vital Signs: BP: Pulse: Resp: Temp: 02 Sat: ECG Mon: 4. Pain Intensity: 4-5 5. Fall Risk: Dizziness: Needs help standing or walking: Fallen in the last 3 months: Fall risk comments: 6. Patient on Blood Thinner: None 7. History of Hypertension: N 8. Opioid Therapy greater than 6 weeks: N Opiate Contract Signed: 9. Risk Assessment Tool Provided: 3-LOW RISK 10. Functional Assessment Tool: 11. Recreational Drug Use: Never Drug Type: Tobacco Use: Never Smoker Tobacco Type: Amount or Packs/day: How Many Years: Alcohol Use: Yes Frequency: Quant:
--- NOTE | 2019-07-21 12:51 | NUR ---
Pain Clinic Assessment: 1. History of Osteoarthritis: NO History of Rheumatoid Arthritis: DX'D WITH INFLAMMATORY ARTHRITIS 12/04 NO SPECIFIC DX'S AT THIS TIME-YET. TREATING CURRENTLY-THEN WILL EXPLORE REASONS LATER 2. Height: 5 ft. 3 in. 160.0 cm. Weight: 125.0 lb. oz. 56.700 kg. Patient's BMI: 22.1 3. Vital Signs: BP: Pulse: Resp: Temp: 02 Sat: ECG Mon: 4. Pain Intensity: 4-5 5. Fall Risk: Dizziness: N Needs help standing or walking: N Fallen in the last 3 months: N Fall risk comments: 6. Patient on Blood Thinner: None 7. History of Hypertension: N 8. Opioid Therapy greater than 6 weeks: N Opiate Contract Signed: 9. Risk Assessment Tool Provided: 3-LOW RISK 10. Functional Assessment Tool: 11. Recreational Drug Use: Never Drug Type: Tobacco Use: Never Smoker Tobacco Type: Amount or Packs/day: How Many Years: Alcohol Use: Yes Frequency: Quant:
--- NOTE | 2019-07-27 07:45 | HPC ---
[facility] [place] [address] PAIN MANAGEMENT CONSULTATION Name: SANDHYA HALL Duran Room #: REG MELIDA Danny.#: [id number] Admission: 07/21/19 Attend Phys: Talat Jimenez DO Discharge: Date of : 82 Report #: [id number] THIS REPORT FOR: cc: ROBERTO KEITH Physician not on staff Talat Jimenez DO ~ DATE OF SERVICE: 07/21/2019 CHIEF COMPLAINT: Complex regional pain syndrome of the right foot. HISTORY OF PRESENT ILLNESS: As you know, the patient is a very pleasant 39-year-old female returning in followup visit for medication management to address complex regional pain syndrome type symptoms of the right lower extremity. She indicates today pain level of around 4-5/10. She states pain is exacerbated with activity such as standing and walking for long periods of time. It did improve with the medications provided as well as a spinal cord stimulator trial implantation she underwent. She returns today in followup visit, continuing to consider the possible surgical implantation of a permanent spinal cord stimulator, but requesting refill of medications today. She denies any new injury, trauma or any changes in her current medical history. ALLERGIES: No known drug allergies. CURRENT MEDICATIONS: Lyrica, hydrocodone, topiramate, Vyvanse, Fioricet, Rizatriptan and nortriptyline. SOCIAL HISTORY: The patient denies tobacco, alcohol, IV or illicit drug use. She is working, not receiving workmen's compensation, unaccompanied today. IMAGING: No new imaging available. PHYSICAL EXAMINATION: GENERAL: Well-developed, well-nourished, well-hydrated, 39-year-old female. She appears her stated age. She is placing current pain score at 4-5/10. HEENT: Normocephalic, atraumatic. Pupils equal, round, reactive to light. Extraocular muscles are intact. Speech is fluent. EXTREMITIES: Show no clubbing, no cyanosis, no edema except on the right foot which shows changes in skin color, changes in hair growth and nail growth. There is tactile allodynia and hyperalgesia on the right foot compared to the left, consistent with complex regional pain syndrome type 1. ASSESSMENT: 1. Complex regional pain syndrome type 1 of the right lower extremity. 2[place] [address] PAIN MANAGEMENT CONSULTATION Name: SANDHYA HALL Room #: REG [facility] Shawn#: [id number] Admission: 07/21/19 Attend Phys: Talat Jimenez DO Discharge: Date of : 82 Report #: [id number] 3. Chronic intractable pain. PLAN: 1. The patient returns today in followup visit where we have discussed at length the efficacy of medications provided. She feels medications in conjunction with adjustments in her daily lifestyle and activities have improved symptoms to a level now 4-5/10. She states she is fairly stable from a pain standpoint and wishes to continue current medical therapy. She is denying side effects of sleepiness, disorientation, confusion, mental slowing. We reviewed the fact that opiate medications are being used to provide analgesia adequate to support activities of daily living, not attempting to achieve a specific pain score on the 0-10 Visual Analog Scale. The current opiate medications are providing sufficient analgesia to allow the patient to participate in activities of daily living. The patient is not exhibiting any aberrant behavior suggestive of drug diversion. The patient is not having any adverse reactions to medications. The patient is not suffering from daytime somnolence or mental acuity changes. The patient is managing opiate-induced constipation with appropriate [id number]-irslzmk agents and dietary considerations. The patient was counseled on concern for caution with operating a motor vehicle while using opiate medications. A physical exam was performed and the patient's functional status was evaluated. All patients with back pain were advised against the bed rest greater than 4 days and were advised to return to normal activities. Pain score assessment was noted and the treatment plan was reviewed with the patient. All current medications, both prescribed and OTC were reviewed and reconciled on the electronic medical record. Tobacco screening was accomplished and smoking cessation was advised when indicated. BMI was noted and diet/exercise modification was recommended for all patients following outside normal parameters. I reviewed with the patient today their responsibilities to safeguard prescription medications, reviewed their responsibility to utilize medications only as prescribed by the physician. They are to seek and receive pain medications only from 1 physician group ( [facility]). They are to use 1 pharmacy and keep the clinic informed if they change pharmacies. Their responsibilities include making followup visits in a timely fashion and to avoid abrupt discontinuation of medication usage. Their responsibilities further include bringing their medications (bottles from the pharmacy with residual pills) to the visit for possible confirmation of pill counts and the patient understands it is their responsibility to submit to random drug screens to ensure both that the medications prescribed are present, and that no other controlled substances are present. All prescriptions provided today were generated electronically. 2. The patient was provided prescription of hydrocodone 10/325 one tab every 4 hours p.r.n. for pain. I have given the patient #150, releasing today, 4 weeks from today, 8 weeks from today, 3 months' worth of medication. 3. The patient was provided prescription of Celebrex 200 mg dose 1 tab p.o. b.i.d., #60, 2 refills. 4. The patient was provided prescription of Topamax 50 mg dose 1 tab p.o. [facility] [address] [place] [address] PAIN MANAGEMENT CONSULTATION Name: SANDHYA HALL Duran [facility] [id number] Admission: 07/21/19 Attend Phys: Talat Jimenez DO Discharge: Date of : 81 Report #: [id number] t.i.d. I have given the patient #180, be able to titrate as directed with 2 refills. 5. The patient was provided refill prescription of her Lyrica 75 mg dose 1 tab p.o. b.i.d., #60, 2 refills. The patient was advised to watch for any side effects with this medication such as sleepiness, disorientation, confusion, mental slowing. If she notes side effects, contact our clinic. 6. We will see the patient back in followup visit in 3 months for medication management, earlier if adjustments need to be made or she does wish to make plans to begin scheduling a permanent implant of a spinal cord stimulator. We are hopeful the patient will continue to see analgesic benefit with the treatment today. <ELECTRONICALLY SIGNED> By: Talat Jimenez DO 07/27/19 0745 [id number] Talat Jimenez DO /nt
== END ==
LOC: PAIN 02-09 08:10
DX: G89.4 Chronic pain syndrome (principal); G62.9 Polyneuropathy, unspecified; Z79.899 Other long term (current) drug therapy

== ENCOUNTER → 2019-10-26 | Outpatient (CLI) | payer BC ==
[~2019-10-26] MED LIST changes: +FOLIC ACID1 MG PO; +METHOTREXA25 MG/1 M3 IM
--- NOTE | 2019-10-27 13:15 | HPC ---
[facility] [address] [place] [address] PAIN MANAGEMENT CONSULTATION Name: SANDHYA HALL Room #: REG MELIDA Goodson.#: [id number] Admission: 10/26/19 Attend Phys: Talat Jimenez DO Discharge: Date of : 82 Report #: [id number] THIS REPORT FOR: cc: ROBERTO ELIAS Physician not on staff Talat Jimenez DO ~ DATE OF SERVICE: 10/26/2019 REFERRING PHYSICIAN: Roberto Elias MD CHIEF COMPLAINT: Complex regional pain syndrome of the right foot. HISTORY OF PRESENT ILLNESS: As you know, the patient is a very pleasant 39-year-old female who is joining us via telehealth conference for medication management to address complex regional pain syndrome type 1 of the right lower extremity. She continues to report pain at the level of around 6/10. She states pain is exacerbated with activity such as standing, walking and even sitting for long periods of time. Vibratory sensations exacerbate her symptoms as does cold temperatures. Warm compresses and medication management tends to be quite beneficial. As you are aware, the patient did very well with the spinal cord stimulator trial and is considering moving towards permanent option. She joins us via telehealth conference for medication management. She is denying any side effects to medication including sleepiness, disorientation, confusion, mental slowing or constipation. She feels the therapy is working well given her underlying disease process. 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 She returns requesting refill on medications at current dosing. ALLERGIES: No known drug allergies. CURRENT MEDICATIONS: Lyrica, hydrocodone, topiramate, Fioricet, Rizatriptan nortriptyline and Cymbalta. SOCIAL HISTORY: The patient denies tobacco, alcohol or IV illicit drug use. She is working at home and not receiving workmen's compensation nor is she trying to obtain disability benefits. She is joining us by telephone conversation today. IMAGING: No new imaging available. PHYSICAL EXAMINATION: GENERAL: The patient is a well-developed, well-nourished 39-year-old female. She is placing pain today at 6/10. HEENT: Normocephalic and atraumatic. Speech is fluent for patient. EXTREMITIES: Per the patient show no clubbing and no cyanosis. There are noted [address] [address] PAIN MANAGEMENT CONSULTATION Name: SANDHYA HALL Room #: REG [facility].#: [id number] Admission: 10/26/19 Attend Phys: Talat Jimenez DO Discharge: Date of : 82 Report #: [id number] right foot changes and skin color changes along with hair growth or nail changes on the right when compared to left. The patient reports continued tactile allodynia and hyperalgesia. ASSESSMENT: 1. Complex regional pain syndrome type 1 of the right lower extremity. 2. Peripheral neuropathy. 3. Underlying rheumatologic condition of unknown origin with continued workup. 4. Immunocompromised. 5. Chronic intractable pain. PLAN: 1. The patient joins us via telehealth conference today for medication management. She feels the medications are working beneficially. She has reduced her reliance on topiramate and has noted increase overall pain. She reduced the topiramate as she was feeling that it was causing some cognitive dysfunction. She has noticed an increase in overall pain with this reduction. She is going to increase the dose back to prior dosing at this point to gain analgesic benefit. She feels the combination of medications are working well for pain control despite the elevated 6/10 pain report today. 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 She states the combination of treatments are working well and wishes to continue the therapy. We reviewed the fact that opiate medications are being used to provide analgesia adequate to support activities of daily living, not attempting to achieve a specific pain score on the 0-10 Visual Analog Scale. The current opiate medications are providing sufficient analgesia to allow the patient to participate in activities of daily living. The patient is not exhibiting any aberrant behavior suggestive of drug diversion. The patient is not having any adverse reactions to medications. The patient is not suffering from daytime somnolence or mental acuity changes. The patient is managing opiate-induced constipation with appropriate ncuw-has-pasunbt agents and dietary considerations. The patient was counseled on concern for caution with operating a motor vehicle while using opiate medications. A physical exam was performed and the patient's functional status was evaluated. All patients with back pain were advised against the bed rest greater than 4 days and were advised to return to normal activities. Pain score assessment was noted and the treatment plan was reviewed with the patient. All current medications, both prescribed and OTC were reviewed and reconciled on the electronic medical record. Tobacco screening was accomplished and smoking cessation was advised when indicated. BMI was noted and diet/exercise modification was recommended for all patients following outside normal [facility] [address] [place] [address] PAIN MANAGEMENT CONSULTATION Name: SANDHYA HALL Room #: REG MELIDA Escobar#: [id number] Admission: 10/26/19 Attend Phys: Talat Jimenez DO Discharge: Date of : 82 Report #: [id number] parameters. I reviewed with the patient today their responsibilities to safeguard prescription medications, reviewed their responsibility to utilize medications only as prescribed by the physician. They are to seek and receive pain medications only from 1 physician group ( [facility]). They are to use 1 pharmacy and keep the clinic informed if they change pharmacies. Their responsibilities include making followup visits in a timely fashion and to avoid abrupt discontinuation of medication usage. Their responsibilities further include bringing their medications (bottles from the pharmacy with residual pills) to the visit for possible confirmation of pill counts and the patient understands it is their responsibility to submit to random drug screens to ensure both that the medications prescribed are present, and that no other controlled substances are present. All prescriptions provided today were generated electronically. 2. The patient was provided a refill prescription of her hydrocodone/acetaminophen 10/325 one tab every 4 hours p.r.n. for pain. I have given the patient #150 tablets to release today, 4 weeks from today and 8 weeks from today, 3 months' worth of medication. All prescriptions sent via e-scribed to local pharmacy. We did receive confirmation the medications are being processed. 3. The patient will increase the Topamax back to its typical dosing. I have given her 50 mg tabs to take 3 times a day. She will increase the therapy over the next couple of days to maintain efficacy with this medication. She was given #180 tablets with 2 refills. Prescription sent via e-scribed to local pharmacy. 4. The patient was provided refill prescription of her Lyrica 75 mg dose 1 tab p.o. b.i.d., #60 with 2 refills. The patient will continue this medication for baseline neuropathic pain control. 5. The patient was provided a prescription of Cymbalta 200 mg dose 1 tab p.o. b.i.d., #60 tablets, 2 refills, 3 months' worth of medication. 6. We will see the patient back in followup visit at our clinic in 2 months for medication management. By that time, the COVID restrictions should have been lifted and the patient will be safe to return to our clinic even though she is immune compromised with the medication provided for rheumatologic issues. She will also consider the possibility of undergoing permanent implant of the spinal cord stimulator. She did note good benefit, but has delayed due to these COVID restrictions. <ELECTRONICALLY SIGNED> By: Talat Jimenez DO 10/27/19 1315 [id number] Talat Jimenez DO /nt
== END ==
LOC: TELEPC 06:47 → PAIN 12:06 → TELEPC 12:42
PROVIDERS: ATTEND Anesthesiology Pain Medicine
DX: G90.521 Complex regional pain syndrome I of right lower limb (principal); G90.09 Other idiopathic peripheral autonomic neuropathy; Z79.899 Other long term (current) drug therapy

== ENCOUNTER → 2020-01-19 | Outpatient (CLI) | payer BC ==
--- NOTE | 2020-01-19 12:38 | NUR ---
Pain Clinic Assessment: 1. History of Osteoarthritis: NO History of Rheumatoid Arthritis: DX'D WITH INFLAMMATORY ARTHRITIS 12/04 NO SPECIFIC DX'S AT THIS TIME-YET. TREATING CURRENTLY-THEN WILL EXPLORE REASONS LATER 2. Height: ft. in. cm. Weight: lb. oz. kg. Patient's BMI: 3. Vital Signs: BP: Pulse: Resp: Temp: 02 Sat: ECG Mon: 4. Pain Intensity: 5 5. Fall Risk: Dizziness: N Needs help standing or walking: N Fallen in the last 3 months: N Fall risk comments: 6. Patient on Blood Thinner: None 7. History of Hypertension: N 8. Opioid Therapy greater than 6 weeks: N Opiate Contract Signed: 9. Risk Assessment Tool Provided: 3-LOW RISK 10. Functional Assessment Tool: 11. Recreational Drug Use: Never Drug Type: Tobacco Use: Never Smoker Tobacco Type: Amount or Packs/day: How Many Years: Alcohol Use: Yes Frequency: Quant:
--- NOTE | 2020-01-25 12:53 | HPC ---
[facility] [place] [address] PAIN MANAGEMENT CONSULTATION Name: SANDHYA HALL Duran Room #: REG MELIDA FlemingJose LuisJavier.#: [id number] Admission: 01/19/20 Attend Phys: Talat Jimenez DO Discharge: Date of : 82 Report #: [id number] THIS REPORT FOR: cc: ROBERTO KEITH Physician not on staff Talat Jimenez DO ~ DATE OF SERVICE: 01/19/2020 CHIEF COMPLAINT: Complex regional pain syndrome, right foot. HISTORY OF PRESENT ILLNESS: As you know, the patient is a very pleasant 40-year-old female who returns today in followup visit for medication management to address ongoing complex regional pain syndrome of the right foot. The patient has done very well with a spinal cord stimulator trial and is considering undergoing permanent implant. She returns today requesting refill of medications. She feels medications are beneficial for pain control with about 60% improvement in overall pain. She returns today to begin the process of preparing to undergo permanent implant of spinal cord stimulator, but requires refill of medications at this point. She states that changes in her daily activity have improved her overall pain. She describes the pain as intermittent, aching, sharp, throbbing, and tenderness, burning, stinging and numbness. Pain is exacerbated with touch, walking, putting on shoes or socks, standing. Pain is improved again with medications and spinal cord stimulator trial. She returns today in followup visit to begin the process of permanent implant spinal cord stimulator scheduling as well as medication management. ALLERGIES: No known drug allergies. CURRENT MEDICATIONS: Topamax 50 mg every 8 hours, hydrocodone/acetaminophen 10/325 one tab every 4 hours to 5 hours p.r.n. for pain, celecoxib 200 mg once a day, folic acid 1 mg per day, methotrexate 0.6 mg intramuscular per week, Lyrica 75 mg q. 12 hours, Xyzal 5 mg per day, calcium carbonate 1 tab per day, baclofen 10 mg 3 times a day, Plaquenil 200 mg once a day, Vyvanse 70 mg once a day, Fioricet 1 tab p.r.n., and rizatriptan 5 mg per day. SOCIAL HISTORY: The patient denies tobacco, alcohol, IV or illicit drug use. 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 She is not receiving workmen's compensation nor she is trying to obtain discrete benefits. She is unaccompanied today. IMAGING: No new imaging available. PHYSICAL EXAMINATION: VITAL SIGNS: Blood pressure 122/67, pulse 65, respiratory rate 18 and unlabored. The patient is 100% [place] [address] PAIN MANAGEMENT CONSULTATION Name: SANDHYA HALL Room #: REG [facility]#: [id number] Admission: 01/19/20 Attend Phys: Talat Jimenez DO Discharge: Date of : 82 Report #: [id number] GENERAL: Well-developed, well-nourished, well-hydrated, 40-year-old female appearing stated age. She is in mild distress secondary to pain, placing her current pain involving the right foot 5/10. HEENT: Normocephalic, atraumatic. Pupils equal, round and reactive. Speech is fluent. EXTREMITIES: Show no clubbing, no cyanosis, though there is noted skin color changes in the right lower extremity. There is musculoskeletal type changes in temperature when comparing the dorsum of the right foot, dorsum of the left foot as well as plantar surface of the right foot and the left foot. There are definitive changes in nail texture and growth on the right when compared to left. ASSESSMENT: 1. Complex regional pain syndrome type 1 of the right foot. PLAN: 1. The patient returns today in followup visit where we have discussed at length the efficacy of the spinal cord stimulator. She is considering moving forward with permanent implant. I have advised the patient will send the information to the implanting surgeon to begin the process of scheduling the device implantation. I do feel that a combination of medication with the device will provide the patient with the greatest amount of efficacy and allow return of relative normal function. The patient is agreeable with plan. We will be sending the information to the implanting physician, Dr. Tyrese Dan, to discuss scheduling of a permanent implant of a spinal cord stimulator to address right foot complex regional pain syndrome type 1. We reviewed the fact that opiate medications are being used to provide analgesia adequate to support activities of daily living, not attempting to achieve a specific pain score on the 0-10 Visual Analog Scale. The current opiate medications are providing sufficient analgesia to allow the patient to participate in activities of daily living. The patient is not exhibiting any aberrant behavior suggestive of drug diversion. The patient is not having any adverse reactions to medications. The patient is not suffering from daytime somnolence or mental acuity changes. The patient is managing opiate-induced constipation with appropriate [id number]-[id number] agents and dietary considerations. The patient was counseled on concern for caution with operating a motor vehicle while using opiate medications. A physical exam was performed and the patient's functional status was evaluated. All patients with back pain were advised against the bed rest greater than 4 days and were advised to return to normal activities. Pain score assessment was noted and the treatment plan was reviewed with the patient. All current medications, both prescribed and OTC were reviewed and reconciled on the electronic medical record. Tobacco screening was accomplished and smoking cessation was advised when indicated. BMI was noted and diet/exercise [facility] [address] [place] [address] PAIN MANAGEMENT CONSULTATION Name: SANDHYA HALL Duran Room #: REG [facility].#: [id number] Admission: 01/19/20 Attend Phys: Talat Jimenez DO Discharge: Date of : 82 Report #: [id number] modification was recommended for all patients following outside normal parameters. I reviewed with the patient today their responsibilities to safeguard prescription medications, reviewed their responsibility to utilize medications only as prescribed by the physician. They are to seek and receive pain medications only from 1 physician group ( [facility]). They are to use 1 pharmacy and keep the clinic informed if they change pharmacies. Their responsibilities include making followup visits in a timely fashion and to avoid abrupt discontinuation of medication usage. Their responsibilities further include bringing their medications (bottles from the pharmacy with residual pills) to the visit for possible confirmation of pill counts and the patient understands it is their responsibility to submit to random drug screens to ensure both that the medications prescribed are present, and that no other controlled substances are present. All prescriptions provided today were generated electronically. 2. The patient was provided prescription of [place] 10/325 one tab every 4-6 hours p.r.n. for pain. I have given the patient #150 release now, 4 weeks from today and 8 weeks from today, 3 months' worth of medication. All prescriptions are given via e-scribed to local pharmacy. 3. The patient was provided prescription of Topamax 50 mg dose 1 tab t.i.d. I have given the patient #180, which is a 3-month prescription. She was given 2 refills. 4. The patient was provided refill prescription of Lyrica 75 mg dose 1 tab p.o. b.i.d., given the patient #60 tablets, 2 refills, 3 months' worth of medication. 5. The patient was provided a refill prescription of Celebrex 200 mg dose. She can take the tabs up to twice a day, given b.i.d. p.r.n., #60 tablets, 2 refills. 6. We will see the patient back in followup visit for medication management in 3 months. If she has any issues or concerns with scheduling her spinal cord stimulator, she can contact our clinic. <ELECTRONICALLY SIGNED> By: Talat Jimenez DO 01/25/20 [id number] Talat Jimenez DO /nt
== END ==
LOC: PAIN 06:56
PROVIDERS: ATTEND Anesthesiology Pain Medicine
DX: G89.4 Chronic pain syndrome (principal); M79.671 Pain in right foot

== ENCOUNTER → 2020-04-25 | Outpatient (CLI) | payer BC ==
[~2020-04-25] MED LIST changes: +CELEBREX 200 M200 M1 PO
--- NOTE | 2020-04-26 15:05 | HPC ---
[facility] [place] [address] PAIN MANAGEMENT CONSULTATION Name: SANDHYA HALL Duran Room #: REG [facility]..#: [id number] Admission: 04/25/20 Attend Phys: Fabi Bojorquez Discharge: Date of : 82 Report #: [id number] THIS REPORT FOR: cc: ROBERTO KEITH Physician not on staff Fabi Bojorquez ~ DATE OF SERVICE: 04/25/2020 CHIEF COMPLAINT: Complex regional pain syndrome, right foot. HISTORY OF PRESENT ILLNESS: This is a telemedicine appointment that I am speaking via [employer] with the patient from 9:40-9:55 due to COVID exposure of a family member within the household that the patient has consented for. HISTORY OF PRESENT ILLNESS: As you know, this is a pleasant 40-year-old female who I am speaking with via [employer] for her telemedicine appointment for her medication renewal. She continues to have medication renewal. The patient continues to have ongoing complex regional pain syndrome in her right foot that requires daily medication. Today, she is reporting a pain score of 5/10, which is slightly elevated and has been in the last 4-5 days she believes this has to do with weather changes prior to this time. She is rating her pain a 3. She feels that her chronic pain does wax and wane. Someday, she is able to take less hydrocodone, but more recently she has been taking 5 tablets a day as well as her Lyrica, Topamax and Celebrex. Again, her pain is in her right foot on the outer aspect. It is an aching, throbbing, burning sensation that is bothersome by touch or prolonged standing. She denies any constipation or daytime somnolence as a result of her medication. The patient is considering a spinal cord stimulator implant. She had a trial that was successful earlier this year. She has appointment with Dr. Torres tomorrow. She is afraid she will need to cancel that due to being in quarantine for COVID. ALLERGIES: No known drug allergies. CURRENT LIST OF MEDICATIONS: Topamax, hydrocodone 10/325 every 4 hours, Celebrex 200 mg b.i.d., folic acid, methotrexate, Lyrica, Xyzal, calcium, baclofen, Plaquenil, Vyvanse, Fioricet. PQRS: 1. She denies history of osteoarthritis, but does have a diagnosis of inflammatory arthritis and being treated with methotrexate. 2. Height, weight and vital signs are deferred due to a telemedicine appointment. 3. Pain score is 5/10. 4. Denies dizziness, does not need help walking or standing, has not fallen in [address] [address] PAIN MANAGEMENT CONSULTATION Name: SANDHYA HALL Duran Room #: REG MELIDA Escobar#: [id number] Admission: 04/25/20 Attend Phys: Fabi Bojorquez Discharge: Date of : 82 Report #: [id number] the last 3 months. The patient is not on any blood thinners or medicine for hypertension. 5. Opioid therapy is greater than [address] an opioid signed contract in her chart. 6. Risk assessment is low. Functional assessment is . 7. Recreational drug use, she denies. She is not a smoker and occasionally drinks alcohol. According to the prescription monitoring system, the patient is filling her appropriately for her medications in a timely fashion. She is due to fill next week. Her morphine milliequivalent is 50 MME per day. If she takes her allotted amount she does have pills of Fioricet for her migraines and has been on that long-term as well. PHYSICAL EXAMINATION: Deferred. This is a review of systems. This is alert and orientated, well-hydrated female, placing her current pain score at 5/10 today in her right foot. IMPRESSION: 1. Complex regional pain syndrome of her right foot. 2. Peripheral neuropathy. 3. Underlying rheumatologic condition of unknown origin, utilizing methotrexate. 4. Complex chronic intractable pain. We reviewed the fact that opiate medications are being used to provide analgesia adequate to support activities of daily living, not attempting to achieve a specific pain score on the 0-10 Visual Analog Scale. The current opiate medications are providing sufficient analgesia to allow the patient to participate in activities of daily living. The patient is not exhibiting any aberrant behavior suggestive of drug diversion. The patient is not having any adverse reactions to medications. The patient is not suffering from daytime somnolence or mental acuity changes. The patient is managing opiate-induced constipation with appropriate [id number]-[id number] agents and dietary considerations. The patient was counseled on concern for caution with operating a motor vehicle while using opiate medications. PLAN: 1. The patient joins me for a telemedicine appointment via [employer] today. She feels the medications are working very well, though the last few days, she has had a flare. Someday she is able to tolerate 3 tablets of her hydrocodone a day, other days requiring a full 5. She is filling these appropriately. We will continue her pain medication of hydrocodone 10/325, #150. These will be sent electronically by Dr. Talat Jimenez for today, 4week an 8-week supply. 2. I will continue her on her Celebrex 200 mg b.i.d., quantity 60 with 2 additional refills. The patient is not in need of her Topamax or Lyrica today. [facility] [address] [place] [address] PAIN MANAGEMENT CONSULTATION Name: SANDHYA HALL Duran Room #: REG MELIDA Escobar#: [id number] Admission: 04/25/20 Attend Phys: Fabi Bojorquez Discharge: Date of : 82 Report #: [id number] Those were recently set electronically. 3. I encouraged the patient to call Dr. Dan's office to see if she is able to set up a telemedicine appointment for her consult regarding her spinal cord stimulator implant. Dr. Talat Jimenez did collaborate with me and see the patient as well during this time and he encouraged this as well. He believes if she has her consult tomorrow, she still will be able to have her implant by the end of the year as long as she does not develop any COVID symptoms. 4. The patient will return in 3 months or as needed for followup visit. <ELECTRONICALLY SIGNED> By: Fabi Bojorquez 04/26/20 [id number] [id number] Fabi Bojorquez /nt
== END ==
LOC: PAIN 06:44 → TELEPC 06:44 → PAIN 10:43
PROVIDERS: ATTEND Clinical Nurse Specialist Adult Health
DX: M79.671 Pain in right foot (principal); G89.4 Chronic pain syndrome; G62.9 Polyneuropathy, unspecified; Z79.899 Other long term (current) drug therapy